=== PATIENT | male | born 1940 | race Caucasian/White ===

== ENCOUNTER 2021-07-09 13:51 | Inpatient (IN) | payer MEDICARE, OTHER ==
[~2021-07-09] VITALS: Ht 188 cm; Wt 89.6 kg
[~2021-07-09 13:51] MED LIST: CYCL-839; GABA100C9; HYDR-1421; LISI-716; METF-372; NAPR1SUS
[2021-07-09] MEDS ORDERED: ONDANSETRON HCL 4 MG/2 ML VIAL IM ONE (14:15)
[2021-07-09] MEDS ORDERED: HYDROmorphone HCL 2 MG/ML VL IM ONE (14:15)
[2021-07-09 15:48] LABS: Basophils # (auto) 0.1 10 ^3/uL (0-0.2); Basophils % (auto) 0.8 % (0.0-2.0); Eosinophils # (auto) 0.3 10 ^3/uL (0-0.8); Eosinophils % (auto) 2.6 % (0.0-7.0); Hematocrit 47.4 % (41.0-53.0); Hemoglobin 16.2 g/dL (13.5-17.5); Lymphocytes # (auto) 2.9 10 ^3/uL (0.4-5.4); Lymphocytes % (auto) 25.4 % (10.0-50.0); Mean Corpuscular Hemoglobin 33.9 pg (28.0-32.0); Mean Corpuscular Hgb Conc. 34.1 g/dL (32.0-36.0); Mean Corpuscular Volume 99.5 fL (80.0-100.0); Monocytes # (auto) 1.1 10 ^3/uL (0-1.3); Monocytes % (auto) 9.9 % (0.0-12.0); Neutrophils % (auto) 61.3 % (37.0-80.0); Nucleated Red Blood Cells % 0.1 %; Red Blood Cells 4.76 10^6/uL (4.5-5.90); Red Cell Distribution Width 13.3 % (11.8-14.3); White Blood Cell 11.4 10^3/uL (4.4-10.8)
[2021-07-09 16:05] LABS: Albumin 3.5 g/dL (3.4-5.0); Calcium 8.9 mg/dL (8.5-10.1); Potassium 4.1 mmol/L (3.5-5.1)
[2021-07-09 16:08] LABS: Bilirubin, Total 0.4 mg/dL (0.2-1.0); Total Protein 6.8 g/dL (6.4-8.2)
[2021-07-09] MEDS ORDERED: methylPREDNISolone SOD SUCC 125 MG/2 ML VL IV ONE (16:30)
[2021-07-09] MEDS ORDERED: ONDANSETRON HCL 4 MG/2 ML VIAL IV ONE (16:30)
[2021-07-09] MEDS ORDERED: MORPHINE SULFATE 4 MG/ML SYR/VIAL IV PRN (16:30)
[2021-07-09] MEDS ORDERED: NITROGLYCERIN 0.4 MG SL TAB SL PRN ×2 (16:30→18:45)
[2021-07-09] MEDS ORDERED: MORPHINE SULFATE INJECTION 2 MG/ML SYRG IV PRN ×3 (16:30→18:45)
[2021-07-09] MEDS ORDERED: ONDANSETRON HCL 4 MG/2 ML VIAL IV PRN ×2 (16:30→18:45)
[2021-07-09] MEDS ORDERED: ASPI-498 PO (16:55)
[2021-07-09] MEDS ORDERED: CARV3.1240 PO (16:55)
[2021-07-09] MEDS ORDERED: ATOR20TA50 PO (16:55)
[2021-07-09] MEDS ORDERED: B-COCAP36 PO (16:55)
[2021-07-09] MEDS ORDERED: GABA-339 PO (16:55)
[2021-07-09] MEDS ORDERED: HYDR-4798 PO (16:55)
[2021-07-09] MEDS ORDERED: METF-929 PO (16:55)
[2021-07-09] MEDS ORDERED: SODIUM CHLORIDE 0.9% 1,000 ML IV ONE (18:30)
[2021-07-09] MEDS ORDERED: NIFEdipine ER 30 MG TAB PO ONE (18:30)
[2021-07-09] MEDS ORDERED: hydrALAZINE HCL 20 MG/ML VL IV PRN (18:30)
[2021-07-09] MEDS: SODIUM CHLORIDE 0.9% 1,000 ML IV SCH (18:32)
[2021-07-09] MEDS ORDERED: cefTRIAXone 1GM/50ML D5W 50 ML IV ONE (18:45)
[2021-07-09] MEDS ORDERED: ACETAMINOPHEN 325 MG TAB PO PRN (18:45)
[2021-07-09] MEDS ORDERED: ALUM & MAG HYDROX-SIMETH LIQ(MAALOX) 30 ML PO PRN (18:45)
[2021-07-09] MEDS ORDERED: DEXTROSE (50%) 50ML SYRG IV PRN (18:45)
[2021-07-09] MEDS ORDERED: HYDROcodone-ACET 5/325MG TAB PO PRN (18:45)
[2021-07-09] MEDS ORDERED: DOCUSATE SOD 100 MG CAP PO PRN (18:45)
[2021-07-09] MEDS ORDERED: FAMOTIDINE (10MG/ML) 2ML VL IV ONE (18:45)
[2021-07-09] MEDS ORDERED: TEMAZEPAM 15 MG CAP PO PRN (18:45)
[2021-07-09 19:23] LABS: Urine Bacteria NONE SEEN /hpf (None Seen); Urine Blood Negative /uL (Negative); Urine WBC 1 /hpf (0 - 3)
[2021-07-09 21:46] LABS: Alcohol, Urine < 3.0 mg/dL (0-10); Amphetamine Screen, Urine NEGATIVE (NEGATIVE); Barbiturate Scree,Urine NEGATIVE (NEGATIVE); Benzodiazephine Screen, Urine NEGATIVE (NEGATIVE); Cannabinoid Screen, Urine POSITIVE (NEGATIVE); Cocaine Screen, Urine NEGATIVE (NEGATIVE); Opiate Scree,Urine POSITIVE (NEGATIVE); Phencyclidine Screen, Urine NEGATIVE (NEGATIVE)
[2021-07-09] MEDS: methylPREDNISolone SOD SUCC 40 MG/ML VL IV SCH (22:14)
[2021-07-09] MEDS: GABAPENTIN 300 MG CAP PO SCH (22:18)
[2021-07-09] MEDS: ATORVASTATIN 20 MG TAB PO SCH (22:18)
[2021-07-09] MEDS: ACCU-CHEK COMFORT CURVE STRIP VI SCH (22:47)
[2021-07-09 23:00] VITALS: BP 137/74
[2021-07-09] MEDS: InsuLIN REG 1unit/0.01ml Soln (100units/ml) SC SCH (23:02)
[2021-07-10 04:53] VITALS: BP 128/71
[2021-07-10 06:08] LABS: Basophils # (auto) 0 10 ^3/uL (0-0.2); Basophils % (auto) 0.2 % (0.0-2.0); Eosinophils # (auto) 0 10 ^3/uL (0-0.8); Hematocrit 44.7 % (41.0-53.0); Hemoglobin 15.3 g/dL (13.5-17.5); Lymphocytes # (auto) 1.3 10 ^3/uL (0.4-5.4); Lymphocytes % (auto) 14.3 % (10.0-50.0); Mean Corpuscular Hemoglobin 33.9 pg (28.0-32.0); Mean Corpuscular Hgb Conc. 34.3 g/dL (32.0-36.0); Mean Corpuscular Volume 98.8 fL (80.0-100.0); Monocytes # (auto) 0.1 10 ^3/uL (0-1.3); Monocytes % (auto) 1.2 % (0.0-12.0); Neutrophils # (auto) 7.8 10 ^3/uL (1.6-8.6); Neutrophils % (auto) 84.3 % (37.0-80.0); Red Blood Cells 4.52 10^6/uL (4.5-5.90); Red Cell Distribution Width 13.5 % (11.8-14.3); White Blood Cell 9.2 10^3/uL (4.4-10.8)
[2021-07-10 06:23] LABS: Albumin 3.2 g/dL (3.4-5.0); Potassium 4.2 mmol/L (3.5-5.1)
[2021-07-10] MEDS: methylPREDNISolone SOD SUCC 40 MG/ML VL IV SCH ×3 (06:29→21:15)
[2021-07-10] MEDS: GABAPENTIN 300 MG CAP PO SCH ×3 (06:29→21:15)
[2021-07-10] MEDS: ACCU-CHEK COMFORT CURVE STRIP VI SCH ×4 (06:29→21:16)
[2021-07-10 06:30] LABS: INR 1.1 (0.9-1.15); Partial Thromboplastin Time 25.7 sec (23.6-33.0)
[2021-07-10] MEDS: InsuLIN REG 1unit/0.01ml Soln (100units/ml) SC SCH ×4 (06:40→21:25)
[2021-07-10 06:43] LABS: BUN/Creatinine Ratio 28.9; Bilirubin, Total 0.4 mg/dL (0.2-1.0); Calcium 8.9 mg/dL (8.5-10.1); Magnesium 2.5 mg/dL (1.6-2.6); Phosphorus 3.9 mg/dL (2.5-4.90); Total Protein 6.9 g/dL (6.4-8.2); Uric Acid 8.1 mg/dL (3.5-7.2)
[2021-07-10 09:00] VITALS: BP 151/84
[2021-07-10] MEDS ORDERED: FAMOTIDINE (10MG/ML) 2ML VL IV SCH (10:00)
[2021-07-10] MEDS: cefTRIAXone 1GM/50ML D5W 50 ML IV SCH (10:31)
[2021-07-10] MEDS: NIFEdipine ER 30 MG TAB PO SCH (10:32)
[2021-07-10] MEDS: MULTIPLE VITAMINS W/ MINERALS TAB PO SCH (10:32)
[2021-07-10] MEDS: ENOXAPARIN SOD 40 MG/0.4 ML SYRINGE SC SCH (10:32)
[2021-07-10] MEDS: ASPirin 81 mg TAB PO SCH (10:32)
[2021-07-10] MEDS: SODIUM CHLORIDE 0.9% 1,000 ML IV SCH (11:10)
[2021-07-10 13:00] VITALS: BP 156/79
[2021-07-10 17:00] VITALS: BP 135/71
[2021-07-10] MEDS: ATORVASTATIN 20 MG TAB PO SCH (21:15)
[2021-07-10 22:00] VITALS: BP 103/68
[2021-07-11 05:00] VITALS: BP 106/57
[2021-07-11] MEDS: SODIUM CHLORIDE 0.9% 1,000 ML IV SCH (05:48)
[2021-07-11] MEDS: methylPREDNISolone SOD SUCC 40 MG/ML VL IV SCH ×2 (05:51→14:00)
[2021-07-11] MEDS: ACCU-CHEK COMFORT CURVE STRIP VI SCH ×2 (05:52→11:55)
[2021-07-11] MEDS: GABAPENTIN 300 MG CAP PO SCH ×2 (05:52→14:00)
[2021-07-11] MEDS: InsuLIN REG 1unit/0.01ml Soln (100units/ml) SC SCH ×2 (06:02→11:54)
[2021-07-11 08:06] LABS: Immunoglobulin G, Serum 517 mg/dL (603-1613)
[2021-07-11 09:00] VITALS: BP 130/67
[2021-07-11] MEDS: cefTRIAXone 1GM/50ML D5W 50 ML IV SCH (09:00)
[2021-07-11] MEDS ORDERED: fentaNYL CITRATE 100 MCG/2 ML VL ONE (09:51)
[2021-07-11] MEDS ORDERED: MIDAZOLAM HCL 2MG/2ML 2ml VIAL (1mg/ml) ONE (09:51)
[2021-07-11] MEDS: ENOXAPARIN SOD 40 MG/0.4 ML SYRINGE SC SCH (10:00)
[2021-07-11] MEDS: MULTIPLE VITAMINS W/ MINERALS TAB PO SCH (10:00)
[2021-07-11] MEDS: ASPirin 81 mg TAB PO SCH (10:00)
[2021-07-11] MEDS: NIFEdipine ER 30 MG TAB PO SCH (10:00)
== END 2021-07-11 15:35 | disposition home health service (06) | DRG 824 ==
LOC: ER 13:51 → EDBD 13:51 → OVERFLOW 16:23 → WEST WING 22:25
PROVIDERS: ADMIT Hospitalist; ATTEND Internal Medicine Geriatric Medicine
PROC: 05HB33Z Insertion of Infusion Device into Right Basilic Vein, Percutaneous Approach (ICD-10-PCS; 2021-07-10)
PROC: B54MZZA Ultrasonography of Right Upper Extremity Veins, Guidance (ICD-10-PCS; 2021-07-10)
PROC: 0QB13ZX Excision of Sacrum, Percutaneous Approach, Diagnostic (ICD-10-PCS; principal; 2021-07-11)
DX: C90.00 Multiple myeloma not having achieved remission (principal); M48.56XA Collapsed vertebra, not elsewhere classified, lumbar region, initial encounter for fracture; F11.20 Opioid dependence, uncomplicated; Z94.84 Stem cells transplant status; G89.4 Chronic pain syndrome; G62.9 Polyneuropathy, unspecified; E78.5 Hyperlipidemia, unspecified; I25.10 Atherosclerotic heart disease of native coronary artery without angina pectoris; E11.9 Type 2 diabetes mellitus without complications; I10 Essential (primary) hypertension; Z20.822 Contact with and (suspected) exposure to COVID-19; M81.0 Age-related osteoporosis without current pathological fracture; F32.A Depression, unspecified; Z79.84 Long term (current) use of oral hypoglycemic drugs; Z79.899 Other long term (current) drug therapy; Z83.3 Family history of diabetes mellitus; Z92.21 Personal history of antineoplastic chemotherapy
CPT/HCPCS: 10022; 36415; 71045; 72131; 72192; 77012; 77074; 80053; 80307; 81001; 82306; 82784; 82962; 83036; 83735; 83880; 83883; 84100; 84155; 84156; 84165; 84166; 84443; 84484; 84550; 85025; 85379; 85610; 85730; 86334; 86335; 87040; 87086; 87426; 96365; 96372; 96375; G0378; J0696; J1815; J2250; J2405; J3490

== ENCOUNTER 2021-11-24 15:25 | Emergency (ER) | payer OTHER ==
[~2021-11-24] VITALS: Ht 180.3 cm; Wt 86.2 kg
[~2021-11-24 15:25] MED LIST changes: +ASPI-498 PO; +ATOR20TA50 PO; +B-COCAP36 PO; +CARV3.1240 PO; -CYCL-839; +GABA-339 PO; -GABA100C9; -HYDR-1421; +HYDR-4798 PO; -LISI-716; -METF-372; +METF-929 PO; -NAPR1SUS
[2021-11-24] MEDS ORDERED: SODIUM CHLORIDE 0.9% 1,000 ML IV ONE (15:45)
[2021-11-24 17:25] LABS: INR 1.12 (0.9-1.15); Partial Thromboplastin Time 22.6 sec (23.6-33.0)
[2021-11-24 17:26] LABS: Albumin 2.9 g/dL (3.4-5.0); Magnesium 2.1 mg/dL (1.6-2.6); Potassium 4.8 mmol/L (3.5-5.1)
[2021-11-24 17:29] LABS: BUN/Creatinine Ratio 24.2; Bilirubin, Total 0.3 mg/dL (0.2-1.0)
[2021-11-24 17:38] LABS: Eosinophils # (auto) 0.1 10 ^3/uL (0-0.8); Eosinophils % (auto) 1.9 % (0.0-7.0); Lymphocytes # (auto) 0.7 10 ^3/uL (0.4-5.4); Mean Corpuscular Hgb Conc. 34.4 g/dL (32.0-36.0); White Blood Cell 7.7 10^3/uL (4.4-10.8)
[2021-11-24 17:40] LABS: Basophils # (auto) 0 10 ^3/uL (0-0.2); Basophils % (auto) 0.5 % (0.0-2.0); Hematocrit 37.9 % (41.0-53.0); Mean Corpuscular Hemoglobin 34.6 pg (28.0-32.0); Mean Corpuscular Volume 100.6 fL (80.0-100.0); Monocytes # (auto) 1.1 10 ^3/uL (0-1.3); Monocytes % (auto) 14.5 % (0.0-12.0); Neutrophils # (auto) 5.7 10 ^3/uL (1.6-8.6); Neutrophils % (auto) 74.1 % (37.0-80.0); Nucleated Red Blood Cells % 0.4 %; Red Blood Cells 3.76 10^6/uL (4.5-5.90); Red Cell Distribution Width 13.6 % (11.8-14.3)
[2021-11-24 20:31] VITALS: BP 143/80
== END 2021-11-24 20:32 | disposition left against medical advice (07) ==
LOC: EDBD 15:25 → ER 15:25
DX: R55 Syncope and collapse (principal); I10 Essential (primary) hypertension; E11.9 Type 2 diabetes mellitus without complications; E78.5 Hyperlipidemia, unspecified; Z79.82 Long term (current) use of aspirin; Z79.899 Other long term (current) drug therapy
CPT/HCPCS: 36415; 70450; 71045; 80053; 80320; 83735; 83880; 84484; 85025; 85610; 85730; 93005; 96360; 96361; 99285; J7030

== ENCOUNTER 2022-12-22 13:20 | Inpatient (IN) | payer OTHER ==
[~2022-12-22] VITALS: Ht 180.3 cm; Wt 113.4 kg
[2022-12-22] MEDS ORDERED: SODIUM CHLORIDE 0.9% 1,000 ML IVB ONE (13:45)
[2022-12-22] MEDS ORDERED: LORazepam 2MG/ML-1ML VIAL IV ONE ×2 (14:00→14:45)
[2022-12-22 14:14] LABS: Basophils # (auto) 0 10 ^3/uL (0-0.2); Eosinophils # (auto) 0.1 10 ^3/uL (0-0.8); Neutrophils # (auto) 4.5 10 ^3/uL (1.6-8.6); Nucleated Red Blood Cells % 0.1 %; White Blood Cell 7.2 10^3/uL (4.4-10.8)
[2022-12-22 14:15] LABS: Basophils % (auto) 0.5 % (0.0-2.0); Eosinophils % (auto) 1.2 % (0.0-7.0); Hematocrit 38.7 % (41.0-53.0); Hemoglobin 13.2 g/dL (13.5-17.5); Lymphocytes # (auto) 1.7 10 ^3/uL (0.4-5.4); Lymphocytes % (auto) 23.4 % (10.0-50.0); Mean Corpuscular Hemoglobin 36.1 pg (28.0-32.0); Mean Corpuscular Volume 106.1 fL (80.0-100.0); Monocytes # (auto) 0.8 10 ^3/uL (0-1.3); Monocytes % (auto) 11.6 % (0.0-12.0); Neutrophils % (auto) 63.3 % (37.0-80.0); Red Blood Cells 3.65 10^6/uL (4.5-5.90); Red Cell Distribution Width 15.8 % (11.8-14.3)
[2022-12-22] MEDS ORDERED: LORazepam 2MG/ML-1ML VIAL ONE (14:44)
[2022-12-22 14:45] LABS: Albumin 3.9 g/dL (3.4-5.0); Anion Gap 5 (5-15); Blood Urea Nitrogen 25 mg/dL (7-18); Carbon Dioxide 24 mmol/L (21-32); Chloride 106 mmol/L (98-107); Sodium 135 mmol/L (136-145)
[2022-12-22 14:48] LABS: INR 1.07 (0.9-1.15); Partial Thromboplastin Time 23.3 sec (24.6-33.4)
[2022-12-22 14:49] LABS: Lactic Acid w/Reflex 2.6 mmol/L (0.4-2.0)
[2022-12-22] MEDS ORDERED: HALOPERIDOL LACTATE 5 MG/ML INJ VIAL ONE (14:50)
[2022-12-22 14:51] LABS: Alanine Aminotransferase 31 U/L (16-61); Alkaline Phosphatase 146 U/L (45-117); Aspartate Aminotransferase 23 U/L (15-37); BUN/Creatinine Ratio 22.5 (10.0-20.0); Bilirubin, Total 0.5 mg/dL (0.2-1.0); Blood Alcohol < 3.0 mg/dL (0-5); Calcium 8.4 mg/dL (8.5-10.1); GFR African American 82 mL/min; GFR Non-African American 68 mL/min; Glucose 94 mg/dL (74-106); Total Protein 7.1 g/dL (6.4-8.2)
[2022-12-22] MEDS ORDERED: LORazepam 2MG/ML-1ML VIAL IM ONE (15:00)
[2022-12-22] MEDS ORDERED: HALOPERIDOL LACTATE 5 MG/ML INJ VIAL IM ONE ×2 (15:00→15:30)
[2022-12-22] MEDS ORDERED: diphenhdrAMINE HCL 50 MG/1 ML VL IM ONE (15:30)
[2022-12-22] MEDS ORDERED: levoFLOXacin 500MG 100 ML IV ONE (16:45)
[2022-12-22] MEDS ORDERED: SODIUM CHLORIDE 0.9% 2,850 ML IV ONE (17:00)
[2022-12-22 17:19] LABS: Alcohol, Urine < 3.0 mg/dL (0-10); Amphetamine Screen, Urine NEGATIVE (NEGATIVE); Barbiturate Scree,Urine NEGATIVE (NEGATIVE); Benzodiazephine Screen, Urine NEGATIVE (NEGATIVE); Cannabinoid Screen, Urine NEGATIVE (NEGATIVE); Cocaine Screen, Urine NEGATIVE (NEGATIVE); Opiate Scree,Urine NEGATIVE (NEGATIVE); Phencyclidine Screen, Urine NEGATIVE (NEGATIVE)
[2022-12-22] MEDS ORDERED: cefTRIAXone 1GM/50ML D5W 50 ML IV ONE (17:30)
[2022-12-22 17:31] LABS: Urine Bacteria NONE SEEN /hpf (None Seen); Urine Blood Negative /uL (Negative); Urine Specific Gravity 1.018 (1.001-1.035); Urine WBC 3 /hpf (0 - 3)
[2022-12-22] MEDS ORDERED: DEXTROSE (50%) 50ML SYRG IV PRN (19:15)
[2022-12-22] MEDS ORDERED: NITROGLYCERIN 0.4 MG SL TAB SL PRN (19:15)
[2022-12-22] MEDS ORDERED: MORPHINE SULFATE INJ 2 MG/ml SYRG IV PRN (19:15)
[2022-12-22] MEDS ORDERED: ATOR-47 PO (19:33)
[2022-12-22 20:15] LABS: Cholesterol 63 mg/dL (< 200); HDL Cholesterol 32 mg/dL (40-59); LDL Cholesterol 27 mg/dL (< 100); Triglycerides 101 mg/dL (< 150)
[2022-12-22] MEDS: CARVEDILOL 3.125 MG TAB PO SCH (22:00)
[2022-12-22] MEDS: InsuLIN REG 1unit/0.01ml Soln (100units/ml) SC SCH (22:00)
[2022-12-22] MEDS ORDERED: ATORVASTATIN 20 MG TAB PO SCH (22:00)
[2022-12-22] MEDS: ACCU-CHEK COMFORT CURVE STRIP VI SCH (22:00)
[2022-12-22] MEDS: SODIUM CHLORIDE 0.9% 1,000 ML IV SCH (23:56)
[2022-12-22] MEDS: CEFEPIME 1GM/ 50ML 50 ML IV SCH (23:56)
[2022-12-23] MEDS: ENOXAPARIN SOD 40 MG/0.4 ML SYRINGE SC SCH ×2 (00:36→10:57)
[2022-12-23] MEDS: hydrALAZINE HCL 20 MG/ML VL IV PRN (00:47)
[2022-12-23] MEDS: SODIUM CHLORIDE 0.9% 1,000 ML IV SCH ×2 (05:15→16:15)
[2022-12-23] MEDS: ACCU-CHEK COMFORT CURVE STRIP VI SCH ×4 (06:31→22:00)
[2022-12-23] MEDS: InsuLIN REG 1unit/0.01ml Soln (100units/ml) SC SCH ×4 (06:32→22:00)
[2022-12-23 06:36] LABS: Basophils # (auto) 0 10 ^3/uL (0-0.2); Basophils % (auto) 0.3 % (0.0-2.0); Eosinophils # (auto) 0.1 10 ^3/uL (0-0.8); Eosinophils % (auto) 1.3 % (0.0-7.0); Hematocrit 36.2 % (41.0-53.0); Hemoglobin 12.4 g/dL (13.5-17.5); Lymphocytes # (auto) 1.2 10 ^3/uL (0.4-5.4); Lymphocytes % (auto) 16.5 % (10.0-50.0); Mean Corpuscular Hemoglobin 36.4 pg (28.0-32.0); Mean Corpuscular Hgb Conc. 34.2 g/dL (32.0-36.0); Mean Corpuscular Volume 106.6 fL (80.0-100.0); Monocytes # (auto) 0.9 10 ^3/uL (0-1.3); Monocytes % (auto) 12.2 % (0.0-12.0); Neutrophils # (auto) 5.1 10 ^3/uL (1.6-8.6); Neutrophils % (auto) 69.7 % (37.0-80.0); Red Blood Cells 3.39 10^6/uL (4.5-5.90); Red Cell Distribution Width 15.8 % (11.8-14.3); White Blood Cell 7.3 10^3/uL (4.4-10.8)
[2022-12-23] MEDS: CEFEPIME 1GM/ 50ML 50 ML IV SCH ×3 (06:36→22:10)
[2022-12-23 06:47] LABS: Potassium 3.8 mmol/L (3.5-5.1)
[2022-12-23 06:54] LABS: Albumin 3.4 g/dL (3.4-5.0); BUN/Creatinine Ratio 18.4 (10.0-20.0); Bilirubin, Total 0.6 mg/dL (0.2-1.0); Calcium 8.3 mg/dL (8.5-10.1); Total Protein 6.6 g/dL (6.4-8.2)
[2022-12-23] MEDS ORDERED: HALOPERIDOL LACTATE 5 MG/ML INJ VIAL ONE (07:25)
[2022-12-23] MEDS ORDERED: HALOPERIDOL LACTATE 5 MG/ML INJ VIAL IM ONE (07:30)
[2022-12-23] MEDS: CARVEDILOL 3.125 MG TAB PO SCH ×2 (10:00→22:00)
[2022-12-23] MEDS: ASPirin-EC 81 mg tab PO SCH (10:00)
[2022-12-23] MEDS ORDERED: LORazepam 2MG/ML-1ML VIAL IV PRN (10:15)
[2022-12-23] MEDS: PANTOPRAZOLE 40 MG/10 ML VIAL INJ IV SCH (10:56)
[2022-12-23 10:58] LABS: Folate (Folic Acid) > 24.00 ng/mL (5.38-24)
[2022-12-23] MEDS: HALOPERIDOL LACTATE 5 MG/ML INJ VIAL IM PRN (12:42)
[2022-12-23] MEDS: LORazepam 2MG/ML-1ML VIAL IV PRN (16:15)
[2022-12-23 22:00] VITALS: BP 116/91
[2022-12-23] MEDS: SACUBITRIL-VALSARTAN 24mg/26mg TAB PO SCH (22:00)
[2022-12-23] MEDS: ATORVASTATIN 20 MG TAB PO SCH (22:00)
[2022-12-24] MEDS: SODIUM CHLORIDE 0.9% 1,000 ML IV SCH ×3 (01:15→21:15)
[2022-12-24 05:00] VITALS: BP 148/84
[2022-12-24] MEDS: EMPAGLIFLOZIN 10 MG TAB PO SCH (06:43)
[2022-12-24] MEDS: CEFEPIME 1GM/ 50ML 50 ML IV SCH ×2 (06:43→14:14)
[2022-12-24] MEDS: InsuLIN REG 1unit/0.01ml Soln (100units/ml) SC SCH ×4 (07:00→22:37)
[2022-12-24] MEDS: ACCU-CHEK COMFORT CURVE STRIP VI SCH ×4 (07:05→22:36)
[2022-12-24 08:00] VITALS: BP 168/98
[2022-12-24 09:00] VITALS: BP 168/98
[2022-12-24] MEDS: ENOXAPARIN SOD 40 MG/0.4 ML SYRINGE SC SCH (09:48)
[2022-12-24] MEDS: CARVEDILOL 3.125 MG TAB PO SCH ×2 (09:49→22:41)
[2022-12-24] MEDS: SACUBITRIL-VALSARTAN 24mg/26mg TAB PO SCH ×3 (09:49→22:42)
[2022-12-24] MEDS: PANTOPRAZOLE 40 MG/10 ML VIAL INJ IV SCH (09:49)
[2022-12-24] MEDS: ASPirin-EC 81 mg tab PO SCH (09:49)
[2022-12-24] MEDS: LORazepam 2MG/ML-1ML VIAL IV PRN (09:50)
[2022-12-24 13:00] VITALS: BP 143/75
[2022-12-24] MEDS: HALOPERIDOL LACTATE 5 MG/ML INJ VIAL IM PRN (13:09)
[2022-12-24 17:00] VITALS: BP 138/75
[2022-12-24 20:00] VITALS: BP 150/76
[2022-12-24] MEDS: ATORVASTATIN 20 MG TAB PO SCH ×2 (22:00→22:42)
[2022-12-25] MEDS: SODIUM CHLORIDE 0.9% 1,000 ML IV SCH ×2 (02:16→17:15)
[2022-12-25] MEDS: ACCU-CHEK COMFORT CURVE STRIP VI SCH ×4 (06:48→22:00)
[2022-12-25] MEDS: InsuLIN REG 1unit/0.01ml Soln (100units/ml) SC SCH ×4 (06:49→22:00)
[2022-12-25] MEDS: EMPAGLIFLOZIN 10 MG TAB PO SCH (06:51)
[2022-12-25 08:00] VITALS: BP 140/83
[2022-12-25] MEDS: ASPirin-EC 81 mg tab PO SCH (09:14)
[2022-12-25] MEDS: SACUBITRIL-VALSARTAN 24mg/26mg TAB PO SCH (09:14)
[2022-12-25] MEDS: ENOXAPARIN SOD 40 MG/0.4 ML SYRINGE SC SCH (09:15)
[2022-12-25] MEDS: CARVEDILOL 3.125 MG TAB PO SCH ×2 (09:15→22:00)
[2022-12-25 12:00] VITALS: BP 138/73
[2022-12-25 16:00] VITALS: BP 147/71
[2022-12-25] MEDS: LORazepam 2MG/ML-1ML VIAL IV PRN (18:59)
[2022-12-25 20:00] VITALS: BP 150/76
[2022-12-25] MEDS: ATORVASTATIN 20 MG TAB PO SCH (22:00)
[2022-12-26] MEDS: SODIUM CHLORIDE 0.9% 1,000 ML IV SCH ×3 (06:08→18:54)
[2022-12-26] MEDS: EMPAGLIFLOZIN 10 MG TAB PO SCH (06:09)
[2022-12-26] MEDS: hydrALAZINE HCL 20 MG/ML VL IV PRN ×2 (07:07→14:56)
[2022-12-26 09:00] VITALS: BP_SYST 138; BP_DIAS 40; BP_DIAS 64
[2022-12-26] MEDS: ASPirin-EC 81 mg tab PO SCH (10:09)
[2022-12-26] MEDS: SACUBITRIL-VALSARTAN 24mg/26mg TAB PO SCH (10:09)
[2022-12-26] MEDS: ENOXAPARIN SOD 40 MG/0.4 ML SYRINGE SC SCH (10:10)
[2022-12-26] MEDS: CARVEDILOL 3.125 MG TAB PO SCH (10:10)
[2022-12-26 11:58] LABS: BUN/Creatinine Ratio 22.4 (10.0-20.0); Calcium 8.7 mg/dL (8.5-10.1); Magnesium 2.1 mg/dL (1.6-2.6); Potassium 3.5 mmol/L (3.5-5.1)
[2022-12-26] MEDS: ACCU-CHEK COMFORT CURVE STRIP VI SCH ×3 (12:22→16:49)
[2022-12-26] MEDS: InsuLIN REG 1unit/0.01ml Soln (100units/ml) SC SCH ×4 (12:27→22:00)
[2022-12-26 13:00] VITALS: BP 160/80
[2022-12-26 18:22] VITALS: BP 138/40
[2022-12-27] MEDS: ATORVASTATIN 20 MG TAB PO SCH ×2 (02:26→22:47)
[2022-12-27] MEDS: SACUBITRIL-VALSARTAN 24mg/26mg TAB PO SCH ×3 (02:26→22:47)
[2022-12-27] MEDS: ACCU-CHEK COMFORT CURVE STRIP VI SCH ×5 (02:26→22:00)
[2022-12-27] MEDS: EMPAGLIFLOZIN 10 MG TAB PO SCH (06:45)
[2022-12-27] MEDS: InsuLIN REG 1unit/0.01ml Soln (100units/ml) SC SCH ×4 (06:46→22:00)
[2022-12-27] MEDS: ENOXAPARIN SOD 40 MG/0.4 ML SYRINGE SC SCH (10:00)
[2022-12-27] MEDS: CARVEDILOL 3.125 MG TAB PO SCH ×2 (10:00→22:48)
[2022-12-27] MEDS: SODIUM CHLORIDE 0.9% 1,000 ML IV SCH ×2 (10:20→23:39)
[2022-12-27] MEDS: ASPirin-EC 81 mg tab PO SCH (10:21)
[2022-12-27] MEDS: HALOPERIDOL LACTATE 5 MG/ML INJ VIAL IM PRN (20:03)
[2022-12-27 22:00] VITALS: BP 150/80
[2022-12-28] MEDS: LORazepam 2MG/ML-1ML VIAL IV PRN (01:22)
[2022-12-28 05:00] VITALS: BP 146/67
[2022-12-28] MEDS: SODIUM CHLORIDE 0.9% 1,000 ML IV SCH ×2 (05:15→17:39)
[2022-12-28] MEDS: EMPAGLIFLOZIN 10 MG TAB PO SCH (06:17)
[2022-12-28] MEDS: InsuLIN REG 1unit/0.01ml Soln (100units/ml) SC SCH ×4 (06:42→21:54)
[2022-12-28] MEDS: ACCU-CHEK COMFORT CURVE STRIP VI SCH ×4 (06:42→21:51)
[2022-12-28] MEDS: CARVEDILOL 3.125 MG TAB PO SCH ×2 (09:49→21:50)
[2022-12-28] MEDS: SACUBITRIL-VALSARTAN 24mg/26mg TAB PO SCH ×2 (09:49→21:49)
[2022-12-28] MEDS: ENOXAPARIN SOD 40 MG/0.4 ML SYRINGE SC SCH (09:49)
[2022-12-28] MEDS: ASPirin-EC 81 mg tab PO SCH (09:49)
[2022-12-28 13:00] VITALS: BP 122/64
[2022-12-28 17:00] VITALS: BP 131/76
[2022-12-28] MEDS: ATORVASTATIN 20 MG TAB PO SCH (21:49)
[2022-12-28 22:00] VITALS: BP 134/80
[2022-12-29] MEDS: SODIUM CHLORIDE 0.9% 1,000 ML IV SCH (02:08)
[2022-12-29 05:00] VITALS: BP 150/79
[2022-12-29 05:07] VITALS: BP 135/76
[2022-12-29] MEDS: InsuLIN REG 1unit/0.01ml Soln (100units/ml) SC SCH ×4 (06:09→21:53)
[2022-12-29] MEDS: ACCU-CHEK COMFORT CURVE STRIP VI SCH ×4 (06:09→21:50)
[2022-12-29] MEDS: EMPAGLIFLOZIN 10 MG TAB PO SCH (06:10)
[2022-12-29] MEDS: ASPirin-EC 81 mg tab PO SCH (10:19)
[2022-12-29] MEDS: CARVEDILOL 3.125 MG TAB PO SCH ×2 (10:19→21:50)
[2022-12-29] MEDS: SACUBITRIL-VALSARTAN 24mg/26mg TAB PO SCH ×2 (10:19→21:49)
[2022-12-29] MEDS: ENOXAPARIN SOD 40 MG/0.4 ML SYRINGE SC SCH (10:20)
[2022-12-29] MEDS ORDERED: ACETAMINOPHEN 325 MG TAB PO PRN (10:30)
[2022-12-29 17:00] VITALS: BP 127/83
[2022-12-29 20:00] VITALS: BP 145/97
[2022-12-29] MEDS: ATORVASTATIN 20 MG TAB PO SCH (21:49)
[2022-12-29 22:00] VITALS: BP 145/97
[2022-12-30] MEDS: HALOPERIDOL LACTATE 5 MG/ML INJ VIAL IM PRN (05:01)
[2022-12-30] MEDS: EMPAGLIFLOZIN 10 MG TAB PO SCH (06:02)
[2022-12-30] MEDS: InsuLIN REG 1unit/0.01ml Soln (100units/ml) SC SCH ×2 (06:02→11:30)
[2022-12-30] MEDS: ACCU-CHEK COMFORT CURVE STRIP VI SCH ×2 (06:02→11:30)
[2022-12-30] MEDS: CARVEDILOL 3.125 MG TAB PO SCH (08:41)
[2022-12-30] MEDS: ASPirin-EC 81 mg tab PO SCH (08:41)
[2022-12-30] MEDS: SACUBITRIL-VALSARTAN 24mg/26mg TAB PO SCH (08:41)
[2022-12-30 09:00] VITALS: BP 105/53
[2022-12-30] MEDS ORDERED: SACU1TAB PO (09:18)
[2022-12-30 09:57] LABS: Basophils # (auto) 0.1 10 ^3/uL (0-0.2); Basophils % (auto) 0.8 % (0.0-2.0); Eosinophils # (auto) 0.1 10 ^3/uL (0-0.8); Eosinophils % (auto) 1.7 % (0.0-7.0); Hematocrit 39.8 % (41.0-53.0); Hemoglobin 13.4 g/dL (13.5-17.5); Lymphocytes # (auto) 1.4 10 ^3/uL (0.4-5.4); Lymphocytes % (auto) 19.8 % (10.0-50.0); Mean Corpuscular Hemoglobin 36.6 pg (28.0-32.0); Mean Corpuscular Hgb Conc. 33.7 g/dL (32.0-36.0); Mean Corpuscular Volume 108.6 fL (80.0-100.0); Monocytes # (auto) 0.7 10 ^3/uL (0-1.3); Monocytes % (auto) 9.9 % (0.0-12.0); Neutrophils # (auto) 4.8 10 ^3/uL (1.6-8.6); Neutrophils % (auto) 67.8 % (37.0-80.0); Red Blood Cells 3.66 10^6/uL (4.5-5.90); Red Cell Distribution Width 15.2 % (11.8-14.3); White Blood Cell 7.1 10^3/uL (4.4-10.8)
[2022-12-30 10:10] LABS: Calcium 8.4 mg/dL (8.5-10.1); Potassium 3.5 mmol/L (3.5-5.1)
[2022-12-30 10:13] LABS: BUN/Creatinine Ratio 19.5 (10.0-20.0)
[2022-12-30 10:40] VITALS: BP 105/53
[2022-12-30 13:00] VITALS: BP 99/59
== END 2022-12-30 15:00 | disposition home health service (06) | DRG 70 ==
LOC: ER 13:20 → EDBD 13:20 → EDUNIT# 13:20 → TELE 19:33 → TELE-WESTW 12-23 18:41
PROVIDERS: ADMIT Registered Nurse; ATTEND Internal Medicine Geriatric Medicine
DX: G93.41 Metabolic encephalopathy (principal); I50.43 Acute on chronic combined systolic (congestive) and diastolic (congestive) heart failure; R47.01 Aphasia; C90.01 Multiple myeloma in remission; I11.0 Hypertensive heart disease with heart failure; G40.209 Localization-related (focal) (partial) symptomatic epilepsy and epileptic syndromes with complex partial seizures, not intractable, without status epilepticus; E78.5 Hyperlipidemia, unspecified; E11.9 Type 2 diabetes mellitus without complications; D53.9 Nutritional anemia, unspecified; D69.6 Thrombocytopenia, unspecified; E66.9 Obesity, unspecified; E86.0 Dehydration; Z20.822 Contact with and (suspected) exposure to COVID-19; I44.7 Left bundle-branch block, unspecified; I65.22 Occlusion and stenosis of left carotid artery; F02.80 Dementia in other diseases classified elsewhere, unspecified severity, without behavioral disturbance, psychotic disturbance, mood disturbance, and anxiety; R55 Syncope and collapse; F17.200 Nicotine dependence, unspecified, uncomplicated; G30.9 Alzheimer's disease, unspecified; G47.00 Insomnia, unspecified; Z79.84 Long term (current) use of oral hypoglycemic drugs; Z79.899 Other long term (current) drug therapy; Z95.1 Presence of aortocoronary bypass graft; Z68.34 Body mass index [BMI] 34.0-34.9, adult
CPT/HCPCS: 36415; 36600; 70450; 71045; 72125; 80048; 80053; 80061; 80307; 80320; 81001; 82140; 82306; 82607; 82746; 82805; 82962; 83036; 83605; 83735; 83880; 84443; 84484; 85025; 85610; 85730; 87040; 87086; 87426; 93005; 93306; 93886; 96365; 96372; 96375; 97110; 97116; 97163; 97530; C9113; G0378; J0696; J1815; J1956

== ENCOUNTER 2024-11-07 10:57 | Inpatient (IN) | payer OTHER ==
[~2024-11-07] VITALS: Ht 170.2 cm; Wt 75.5 kg
[~2024-11-07 10:57] MED LIST changes: +AMIO200T13 PO; +APIX5TAB PO; +ATOR40TA52 PO; +DONE1TAB88 PO; +FOLI-119 PO; -HYDR-4798 PO; +METO25TA93 PO; +MULT-1056 PO; +OMEP-448 PO; +SACU1TAB PO; +TRAM50TA2 PO; +TRAZ-228 PO
--- NOTE | 2024-11-07 11:06 | ED.PDOC ---
SOB-HPI HPI Comments 84 year old male brought in via EMS presents to the ED with a chief complaint of shortness of breath onset 1 day. Per EMS, patient was at an urgent care today for a follow up appointment, went O2 sat was 70% RA, 911 was called. EMS states patient smoked marihuana yesterday and shortly after symptoms began. Patient is a poor historian due to Dementia. PMHx dementia, HTN, cancer, DM, HLD. Denies chest pain, nausea, vomiting, diarrhea, headache, dizziness. No other symptoms or modifying factors present at this time. Time Seen by MD: 11:00 Primary Care Provider: UNKNOWN Reviewed notes: Medications, Allergies Information Source: Patient, Emergency Med Personnel Mode of Arrival: EMS Severity: Moderate Timing: Days Duration: Since onset Context: At Rest PE Risk Factors: None History of: None Prehospital treatment: 12 Lead EKG, Oxygen Modifying Factors: Nothing Radiation: No Radiation Past Medical History PAST MEDICAL HISTORY: Cancer, Dementia, DM, High Lipids, HTN Surgical History: Denies all surgeries Family History Family History: No family hx of Cancer, No family hx of DM, No family hx of H eart jaja Social History Smoker: Non-Smoker Alcohol: Denies ETOH Use Drugs: Marijuana Lives In: Home Constitutional: denies: chills, diaphoresis, fatigue, fever, malaise, sweats, weakness, others EENTM: denies: blurred vision, double vision, ear bleeding, ear discharge, ear drainage, ear pain, ear ringing, eye pain, eye redness, hearing loss, mouth pain, mouth swelling, nasal discharge, nose bleeding, nose congestion, nose pain, photophobia, tearing, throat pain, throat swelling, voice changes, others Respiratory: reports: shortness of breath; denies: cough, hemoptysis, orth opnea, SOB at rest, SOB with excertion, stridor, wheezing, others Cardiovascular: denies: chest pain, dizzy spells, diaphoresis, Dyspnea on exertion, edema, irregular heart beat, left arm pain, lightheadedness, palpitations, PND, syncope, others Gastrointestinal: denies: abdomen distended, abdominal pain, blood streaked bowels, constipated, diarrhea, dysphagia, difficulty swallowing, hematemesis, melena, nausea, poor appetite, poor fluid intake, rectal bleeding, rectal pain, vomiting, others Genitourinary: denies: burning, dysuria, flank pain, frequency, hematuria, in continence, penile discharge, penile sore, pain, testicle pain, testicle swelling, urgency, others Neurological: denies: dizziness, fainting, headache, left sided numbness, left sided weakness, numbness, paresthesia, pre-existing deficit, right sided numbness, right sided weakness, seizure, speech problems, tingling, tremors, weakness, others Musculoskeletal: denies: back pain, gout, joint pain, joint swelling, muscle pain, muscle stiffness, neck pain, others Integumetry: denies: bruises, change in color, change in hair/nails, dryness, laceration, lesions, lumps, rash, wounds, others Allergic/Immunocompromised: denies: Difficulty Healing, Frequent Infections, Hives, Itching, others Hematologic/Lymphatic: denies: anemia, blood clots, easy bleeding, easy bruising, swollen glands, others Endocrine: denies: excessive hunger, excessive sweating, excessive thirst, excessive urination, flushing, intolerance to cold, intolerance to heat, unexplained weight gain, unexplained weight loss, others Psychiatric: denies: anxiety, bipolar disorder, depression, hopeless, panic disorder, schizophrenia, sleepless, suicidal, others All Other Systems: Reviewed and Negative Physical Exam General Appearance: Moderate Distress, Normal HEENT: Normal ENT Inspection, Pharynx Normal, TMs Normal Neck: Full Range of Motion, Non-Tender, Normal, Normal Inspection Respiratory: Chest Non-Tender, Lungs Clear, No Accessory Muscle Use, No Respiratory Distress, Normal Breath Sounds Cardiovascular: No Edema, No JVD, No Murmur, No Gallop, Normal Peripheral Pulses, Regular Rate/Rhythm Breast Exam: Deferred Gastrointestinal: No Organomegaly, Non Tender, No Pulsatile Mass, Normal Bowel Sounds, Soft Genitalia: Deferred Pelvic: Deferred Rectal: Deferred Extremities: No calf tenderness, Normal capillary refill, Normal inspection, Normal range of motion, Non-tender, No pedal edema Musculoskeletal : Apperance: Normal Neurologic: psychiatric aide instructor II-XII nml as Tested, Disoriented, No Motor Deficits, Normal Affect, Normal Mood, No Sensory Deficits Cerebellar Function: NOT DONE Reflexes: NOT DONE Skin: Dry, Normal Color, Warm Lymphatic: No Adenopathy Was a procedure done? Was a procedure done?: No Differential Dx Differential Diagnosis: Anxiety, Asthma, Bronchitis, CHF, COPD X-Ray, Labs, Meds, VS Vital Signs Date Time Temp Pulse Resp B/P (MAP) Pulse Ox O2 Delivery O2 Flow Rate FiO2 11/07/24 12:00 72 11/07/24 11:53 97.4 64 12 121/70 (87) 98 97.4 11/07/24 11:15 Nasal Cannula* 3 32 11/07/24 11:15 Nasal Cannula* 3 32 11/07/24 11:10 97.8 72 20 144/87 (106) 98 97.8 11/07/24 11:01 69 Lab Test 11/07/24 11:14 Range/Units White Blood Count 7.3 4.4-10.8 10^3/uL Red Blood Count 4.25 L 4.5-5.90 10^6/uL Hemoglobin 14.8 13.5-17.5 g/dL Hematocrit 43.6 41.0-53.0 % Mean Corpuscular Volume 102.5 H 80.0-100.0 fL Mean Corpuscular Hemoglobin 34.7 H 28.0-32.0 pg Mean Corpuscular Hemoglobin Concent 33.9 32.0-36.0 g/dL Red Cell Distribution Width 14.9 H 11.8-14.3 % Platelet Count 302 140-450 10^3/uL Mean Platelet Volume 6.7 L 6.9-10.8 fL Neutrophils (%) (Auto) 69.6 37.0-80.0 % Lymphocytes (%) (Auto) 18.8 10.0-50.0 % Monocytes (%) (Auto) 9.4 0.0-12.0 % Eosinophils (%) (Auto) 1.2 0.0-7.0 % Basophils (%) (Auto) 1.0 0.0-2.0 % Neutrophils # (Auto) 5.1 1.6-8.6 10 ^3/uL Lymphocytes # (Auto) 1.4 0.4-5.4 10 ^3/uL Monocytes # (Auto) 0.7 0-1.3 10 ^3/uL Eosinophils # (Auto) 0.1 0-0.8 10 ^3/uL Basophils # (Auto) 0.1 0-0.2 10 ^3/uL Nucleated Red Blood Cells 0.1 % Sodium Level 140 136-145 mmol/L Potassium Level 4.9 3.5-5.1 mmol/L Chloride Level 106 98-107 mmol/L Carbon Dioxide Level 24 20-31 mmol/L Anion Gap 10 5-15 Blood Urea Nitrogen 25 H 9-23 mg/dL Creatinine 1.04 0.700-1.30 mg/dL Glomerular Filtration Rate Calc 72 >90 mL/min BUN/Creatinine Ratio 24.0 H 10.0-20.0 Serum Glucose 120 H 74-106 mg/dL Calcium Level 9.6 8.7-10.4 mg/dL Troponin I High Sensitivity 11 </=54 ng/L [place] [id number] Ph: [phone] DIAGNOSTIC IMAGING Diagnostic Imaging Report : [id number] Signed PATIENT: SRINI WOOTEN ACCT: [id number] UNIT: [id number] : 1940 LOC: ER ROOM / BED: / AGE / SEX: 84 / M ADM STATUS: REG ER SERVICE 1101 ORDERING PHYSICIAN: CHAITANYA BECKER MD PROCEDURE(s): CXRP - CHEST PORTABLE REASON: sob ORDER NUMBER(s): [id number], ACCESSION NUMBER(s): [id number] INDICATION: sob TECHNIQUE: Frontal view of the chest. COMPARISON: XY CHEST PORTABLE on DOS: 12/22/22, CHEST PORTABLE on DOS: 11/24/21, CXRP on DOS: 11/24/21 FINDINGS: . The heart and mediastinal contours are grossly unremarkable. There is no evidence of pleural disease. The lungs are clear. The bony structures of the chest are intact without fracture. IMPRESSION: 1. No evidence of acute disease. ATED BY: KODY SOMMER MD DICTATED DATE/TIME: 11/07/24 120 SIGNED BY: KODY SOMMER MD SIGNED DATE/TIME: 11/07/24 120 CC: Patient history of dementia pain Was at the clinic of the knees started to have desaturation. Placed on oxygen. Comfortable. No sign of any injuries. Chest x-ray reviewed does not show any acute process. WBC within normal limits. He is not on home oxygen. Hemoglobin within normal limits. No family member at bedside. Possible COPD exacerbation. Cardiac marker within normal limits. EKG reviewed does not show any acute changes. Waiting for family. Continue cardiac monitoring. Time of 1ST Reevaluation: 11:30 Reevaluation 1ST: Unchanged Patient Education/Counseling: Diagnosis, Treatment, Prognosis Family Education/Counseling: No Family Present Departure 1 Departure Time of Disposition: 12:38 Impression: Primary Impression: Metabolic encephalopathy Additional Impressions: COPD exacerbation Acute respiratory distress Disposition: ADMITTED INPATIENT Admit to: Med Surg Condition: Guarded Critical Care Note Critical Care Time?: Yes (90 min-critical care time only) Critical care comment: Placed on oxygen Stability Stability form required: No Heart Score Heart Score: Heart Score Response (Comments) Value History Slightly Suspicious 0 EKG Normal 0 Age >65 2 Risk Factors >3 or Hx ASHD 2 Troponin Normal limit 0 Total 4 I personally scribed for CHAITANYA BECKER MD ([email or web address]) on 11/07/24 at 11:06. Electronically submitted by Lindsey Gonzalez ([email or web address]). I personally scribed for CHAITANYA BECKER MD ([email or web address]) on 11/07/24 at 12:35. Electronically submitted by Lindsey Gonzalez ([email or web address]). CHAITANYA BECKER MD Nov 07, 2024 11:06
--- NOTE | 2024-11-07 11:36 | ECG ---
[facility] Test Date: 2024-11-07 Test Time: 11:01:59 Pat Name: SRINI WOOTEN Department: ED Room: 0287 Gender: M Land Survey Technician: jaime : 1940 Requested By: EMERGENCY EMERGENCY Order Number: [id number] Reading MD: Carlos Ortiz Measurements Intervals [place] Rate: 69 P: 37 OR: 270 QRS: -15 QRSD: 162 T: 83 QT: 454 QTc: 487 Interpretive Statements Sinus rhythm Prolonged OR interval Left bundle branch block Electronically Signed On 11-09-2024 22:07:23 PDT by Carlos Ortiz Please click the below link to view image of tracing.
[2024-11-07 11:45] LABS: Basophils # (auto) 0.1 10 ^3/uL (0-0.2); Eosinophils # (auto) 0.1 10 ^3/uL (0-0.8); Eosinophils % (auto) 1.2 % (0.0-7.0); Monocytes # (auto) 0.7 10 ^3/uL (0-1.3); Nucleated Red Blood Cells % 0.1 %
[2024-11-07 11:48] LABS: Hematocrit 43.6 % (41.0-53.0); Hemoglobin 14.8 g/dL (13.5-17.5); Lymphocytes # (auto) 1.4 10 ^3/uL (0.4-5.4); Lymphocytes % (auto) 18.8 % (10.0-50.0); Mean Corpuscular Hemoglobin 34.7 pg (28.0-32.0); Mean Corpuscular Hgb Conc. 33.9 g/dL (32.0-36.0); Mean Corpuscular Volume 102.5 fL (80.0-100.0); Monocytes % (auto) 9.4 % (0.0-12.0); Neutrophils # (auto) 5.1 10 ^3/uL (1.6-8.6); Neutrophils % (auto) 69.6 % (37.0-80.0); Platelet Count (auto) 302 10^3/uL (140-450); Red Blood Cells 4.25 10^6/uL (4.5-5.90); Red Cell Distribution Width 14.9 % (11.8-14.3); White Blood Cell 7.3 10^3/uL (4.4-10.8)
[2024-11-07 11:54] LABS: Chloride 106 mmol/L (98-107); Potassium 4.9 mmol/L (3.5-5.1); Sodium 140 mmol/L (136-145)
[2024-11-07 11:55] LABS: Anion Gap 10 (5-15); Calcium 9.6 mg/dL (8.7-10.4); Carbon Dioxide 24 mmol/L (20-31)
[2024-11-07 12:01] LABS: Blood Urea Nitrogen 25 mg/dL (9-23); Glucose 120 mg/dL (74-106)
--- NOTE | 2024-11-07 12:03 | DVH ---
INDICATION: sob TECHNIQUE: Frontal view of the chest. COMPARISON: XY CHEST PORTABLE on DOS: 12/22/22, CHEST PORTABLE on DOS: 11/24/21, CXRP on DOS: 11/24/21 FINDINGS: . The heart and mediastinal contours are grossly unremarkable. There is no evidence of pleural disea se. The lungs are clear. The bony structures of the chest are intact without fracture. IMPRESSION: 1. No evidence of acute disease.
[2024-11-07 19:48] VITALS: RESP 16; O2SAT 99
[2024-11-07 22:27] VITALS: BP 133/77; PULSE 68; RESP 18; TEMP 98.1; O2SAT 100
[2024-11-07] MEDS ORDERED: DEXTROSE (50%) 50ML SYRG IV PRN (22:30)
[2024-11-07] MEDS ORDERED: ALBUTEROL SULF 2.5 MG/0.5ML(0.5%) NEB SOLN NEB PRN (22:30)
[2024-11-07] MEDS ORDERED: ACETAMINOPHEN 325 MG TAB PO PRN (22:30)
[2024-11-07] MEDS ORDERED: ONDANSETRON HCL 4 MG/2 ML VIAL IV PRN (22:30)
[2024-11-07 23:07] VITALS: O2SAT 96
[2024-11-08] VITALS (10 sets, daily range): BP systolic 102–169; BP diastolic 56–89; PULSE 63–78; RESP 16–20; TEMP 97.4–97.8; O2SAT 69–100
--- NOTE | 2024-11-08 00:28 | DVHHP2 ---
History of Present Illness Reason for Visit: Shortness for breath History of Present Illness 84-year-old male presents for evaluation of shortness for breath. Patient was seen at urgent care today and had an episode where his saturation dropped to the 70s so he was brought in for evaluation. Patient is currently on 2 L of nasal cannula oxygen saturating 94%. He denies chest pain or shortness for breath. He does have a history of dementia and can not provide accurate history. Past Medical History Diabetes mellitus, dementia, dyslipidemia, hypertension cancer Past Surgical History Denies Family History Noncontributory Smoke: No ALCOHOL: none Drugs: None Lives: with Family Review of Systems Review of Systems Review of systems are currently negative otherwise addressed in HPI. Allergies: Coded Allergies: NO KNOWN ALLERGIES (Unverified , 11/10/10) Medications Current Medications Medications Dose Ordered Sig/Sony Route Start Time Stop Time Status Last Admin Dose Admin Donepezil HCl 10 mg HS PO 11/08/24 22:00 Amiodarone HCl 200 mg DAILY PO 11/08/24 10:00 Carvedilol 3.125 mg Q12HR PO 11/08/24 10:00 Atorvastatin Calcium 40 mg HS PO 11/08/24 22:00 Apixaban 5 mg BID PO 11/08/24 10:00 Albuterol 2.5 mg Q6HPRN PRN NEB 11/07/24 22:30 Diagnostic Test (Pha) 1 strip ACHS 11/08/24 07:00 Insulin Human Regular ACHS SC 11/08/24 07:00 Dextrose 50 ml UD PRN IV 11/07/24 22:30 Ondansetron HCl 4 mg Q4HP PRN IV 11/07/24 22:30 Acetaminophen 650 mg Q6HP PRN PO 11/07/24 22:30 Exam Vital Signs Vital Signs Date Time Temp Pulse Resp B/P (MAP) Pulse Ox O2 Delivery O2 Flow Rate FiO2 11/08/24 00:00 65 11/07/24 23:30 14 132/59 (83) 99 11/07/24 23:07 Nasal Cannula* 3 32 11/07/24 22:27 98.1 98.1 Exam Gen: 84-year-old male in mild distress. Skin: Warm, dry, normal color and texture, no rash. HEENT: Normocephalic atraumatic, mucous membranes moist and pink. Neck: Cervical and supraclavicular nodes normal without enlargement, trachea is midline, thyroid gland is normal without masses. Pulmonary: Clear to auscultation and percussion bilaterally. Cardiac: Regular rate and rhythm. No murmur Abdomen: Soft, nontender, nondistended, bowel sounds present all 4 quadrants, no guarding, no rigidity, no organomegaly. Extremities: No cyanosis, clubbing, no edema Neuro: Cranial nerves II through XII grossly intact, normal affect and speech, no focal motor deficits. Labs/Xrays ORDERING PHYSICIAN: CHAITANYA BECKER MD PROCEDURE(s): CXRP - CHEST PORTABLE REASON: sob ORDER NUMBER(s): [id number], ACCESSION NUMBER(s): [id number] INDICATION: sob TECHNIQUE: Frontal view of the chest. COMPARISON: XY CHEST PORTABLE on DOS: 12/22/22, CHEST PORTABLE on DOS: 11/24/21, CXRP on DOS: 11/24/21 FINDINGS: . The heart and mediastinal contours are grossly unremarkable. There is no evidence of pleural disease. The lungs are clear. The bony structures of the chest are intact without fracture. IMPRESSION: 1. No evidence of acute disease. Labs Test 11/07/24 22:39 11/07/24 11:14 Range/Units D-Dimer, Quantitative 1.85 H 0.0-0.49 mg/L FEU B-Type Natriuretic Peptide 387.08 0-100 pg/mL White Blood Count 7.3 4.4-10.8 10^3/uL Red Blood Count 4.25 L 4.5-5.90 10^6/uL Hemoglobin 14.8 13.5-17.5 g/dL Hematocrit 43.6 41.0-53.0 % Mean Corpuscular Volume 102.5 H 80.0-100.0 fL Mean Corpuscular Hemoglobin 34.7 H 28.0-32.0 pg Mean Corpuscular Hemoglobin Concent 33.9 32.0-36.0 g/dL Red Cell Distribution Width 14.9 H 11.8-14.3 % Platelet Count 302 140-450 10^3/uL Mean Platelet Volume 6.7 L 6.9-10.8 fL Neutrophils (%) (Auto) 69.6 37.0-80.0 % Lymphocytes (%) (Auto) 18.8 10.0-50.0 % Monocytes (%) (Auto) 9.4 0.0-12.0 % Eosinophils (%) (Auto) 1.2 0.0-7.0 % Basophils (%) (Auto) 1.0 0.0-2.0 % Neutrophils # (Auto) 5.1 1.6-8.6 10 ^3/uL Lymphocytes # (Auto) 1.4 0.4-5.4 10 ^3/uL Monocytes # (Auto) 0.7 0-1.3 10 ^3/uL Eosinophils # (Auto) 0.1 0-0.8 10 ^3/uL Basophils # (Auto) 0.1 0-0.2 10 ^3/uL Nucleated Red Blood Cells 0.1 % Sodium Level 140 136-145 mmol/L Potassium Level 4.9 3.5-5.1 mmol/L Chloride Level 106 98-107 mmol/L Carbon Dioxide Level 24 20-31 mmol/L Anion Gap 10 5-15 Blood Urea Nitrogen 25 H 9-23 mg/dL Creatinine 1.04 0.700-1.30 mg/dL Glomerular Filtration Rate Calc 72 >90 mL/min BUN/Creatinine Ratio 24.0 H 10.0-20.0 Serum Glucose 120 H 74-106 mg/dL Calcium Level 9.6 8.7-10.4 mg/dL Troponin I High Sensitivity 11 </=54 ng/L Assessment/Plan Assessment/Plan Assessment Acute hypoxic respiratory failure Diabetes mellitus Dementia Hypertension Plan Admit the patient to Med surge to the hospitalist D-dimer pending Med nebs Resume home medications Continue treatment per orders. Plan discussed with: Patient My Orders Orders - NELL ZAIDI AGACNP Procedure Category Date Status Time Donepezil Tablet PHA 11/08/24 In Process (Aricept Tablet) 22:00 Amiodarone Tablet PHA 11/08/24 In Process (Cordarone Tablet) 10:00 Carvedilol Tablet PHA 11/08/24 In Process (Coreg Tablet) 10:00 Atorvastatin (Lipitor) PHA 11/08/24 In Process 22:00 Apixaban (Eliquis) PHA 11/08/24 In Process 10:00 Albuterol Medneb PHA 11/07/24 In Process (Ventolin Medneb) 22:30 Basic Metabolic Panel LAB 11/08/24 Logged 04:00 Glucose Blood PHA 11/08/24 In Process (Accu-Chek Comfort 07:00 Insulin R (Human) PHA 11/08/24 In Process (Insulin R) 07:00 Dextrose 50% Syringe PHA 11/07/24 In Process 22:30 Admit ADMIT 11/07/24 Transmitted 22:16 Ondansetron Hcl PHA 11/07/24 In Process (Zofran) 22:30 Complete Blood Count LAB 11/08/24 Logged 04:00 Cardiac DIET 11/08/24 Transmitted Diet-2gna,Lofat,Lochol Breakfast Condition: Stable JUANY 11/07/24 In Process 22:16 Acetaminophen Tablet PHA 11/07/24 In Process (Tylenol Tablet) 22:30 Bedrest With Bathroom JUANY 11/07/24 In Process Privileg 22:16 Echo 2d Mode Cardiac US 11/07/24 Logged DOP 22:16 Date of Service: Nov 07, 2024 Billing Provider: NELL ZAIDI Common Visit Codes: [id number] INP/OBS CARE (MOD) NELL ZAIDI Nov 08, 2024 00:28
[2024-11-08 06:09] LABS: Eosinophils # (auto) 0.1 10 ^3/uL (0-0.8); Monocytes # (auto) 0.6 10 ^3/uL (0-1.3); Neutrophils # (auto) 3.3 10 ^3/uL (1.6-8.6); Red Cell Distribution Width 14.7 % (11.8-14.3)
[2024-11-08 06:12] LABS: Basophils # (auto) 0 10 ^3/uL (0-0.2); Basophils % (auto) 0.9 % (0.0-2.0); Eosinophils % (auto) 2.2 % (0.0-7.0); Hematocrit 39.5 % (41.0-53.0); Hemoglobin 13.4 g/dL (13.5-17.5); Lymphocytes # (auto) 1.4 10 ^3/uL (0.4-5.4); Lymphocytes % (auto) 26.1 % (10.0-50.0); Mean Corpuscular Hemoglobin 34.4 pg (28.0-32.0); Mean Corpuscular Hgb Conc. 33.8 g/dL (32.0-36.0); Mean Corpuscular Volume 101.5 fL (80.0-100.0); Monocytes % (auto) 10.8 % (0.0-12.0); Nucleated Red Blood Cells % 0.1 %; Platelet Count (auto) 252 10^3/uL (140-450); Red Blood Cells 3.89 10^6/uL (4.5-5.90); White Blood Cell 5.4 10^3/uL (4.4-10.8)
[2024-11-08 06:17] LABS: Potassium 4.5 mmol/L (3.5-5.1); Sodium 140 mmol/L (136-145)
[2024-11-08 06:18] LABS: Anion Gap 7 (5-15); Carbon Dioxide 25 mmol/L (20-31)
[2024-11-08 06:19] LABS: Calcium 9.2 mg/dL (8.7-10.4)
[2024-11-08 06:24] LABS: BUN/Creatinine Ratio 21.3 (10.0-20.0); Blood Urea Nitrogen 19 mg/dL (9-23); Glucose 104 mg/dL (74-106)
[2024-11-08 06:25] LABS: Chloride 108 mmol/L (98-107)
[2024-11-08] MEDS: InsuLIN REG 1unit/0.01ml Soln (100units/ml) SC SCH (06:25)
[2024-11-08] MEDS: ACCU-CHEK COMFORT CURVE STRIP VI SCH (06:25)
[2024-11-08] MEDS: PNEUMOCOCCAL VACC POLYS 25 MCG/0.5 ML VIAL IM ONE (10:00)
[2024-11-08] MEDS: APIXABAN 5 MG TAB PO SCH (10:15)
[2024-11-08] MEDS: AMIODARONE HCL 200 MG TAB PO SCH (10:15)
[2024-11-08] MEDS: CARVEDILOL 3.125 MG TAB PO SCH (10:17)
[2024-11-08] MEDS: FUROSEMIDE 20 MG TAB PO ONE (11:58)
[2024-11-08] MEDS: ATORVASTATIN 20 MG TAB PO SCH (21:09)
[2024-11-08] MEDS: DONEPEZIL HYDROCHLORIDE 5 MG TAB PO SCH (21:09)
[2024-11-09] VITALS (9 sets, daily range): BP systolic 97–146; BP diastolic 43–82; PULSE 66–79; RESP 17–18; TEMP 97.3–97.6; O2SAT 94–100
[2024-11-09 06:21] LABS: Anion Gap 10 (5-15); Carbon Dioxide 25 mmol/L (20-31); Chloride 105 mmol/L (98-107); Potassium 4.2 mmol/L (3.5-5.1); Sodium 140 mmol/L (136-145)
[2024-11-09 06:22] LABS: Calcium 9.3 mg/dL (8.7-10.4)
[2024-11-09 06:34] LABS: Blood Urea Nitrogen 29 mg/dL (9-23); Glucose 113 mg/dL (74-106); Magnesium 1.5 mg/dL (1.6-2.6)
[2024-11-09] MEDS: FUROSEMIDE 20 MG TAB PO SCH (08:49)
[2024-11-09 14:55] LABS: Base Excess 0.9 mmol/L (-2.0-3.0)
--- NOTE | 2024-11-09 16:35 | DVHPN2 ---
Subjective Admitted for SOB and hypoxia Changes from previous H/P or p: Changes Objective Vitals Vital Signs Date Time Temp Pulse Resp B/P (MAP) Pulse Ox O2 Delivery O2 Flow Rate FiO2 11/09/24 12:30 97.3 66 17 146/80 (102) 94 97.3 11/09/24 10:00 Nasal Cannula* 2 28 Intake/Output Intake and Output 11/09/24 07:00 Intake Total 705 ml Output Total 1100 ml Balance -395 ml Intake Oral 705 ml Output Urine Total 1100 ml # Bowel Movements 1 General Appearance: Alert, Oriented X3, Cooperative Lungs: Clear to auscultation, Normal air movement Cardiovascular: Regular rate, Normal S1, Normal S2 Abdomen: Normal bowel sounds, Soft, No tenderness Extremities: No edema Medications Current Medications Medications Dose Ordered Sig/Sony Route Start Time Stop Time Status Last Admin Dose Admin Donepezil HCl 10 mg HS PO 11/08/24 22:00 11/08/24 21:09 10 MG Amiodarone HCl 200 mg DAILY PO 11/08/24 10:00 11/09/24 08:48 200 MG Carvedilol 3.125 mg Q12HR PO 11/08/24 10:00 11/09/24 08:49 3.125 MG Atorvastatin Calcium 40 mg HS PO 11/08/24 22:00 11/08/24 21:09 40 MG Apixaban 5 mg BID PO 11/08/24 10:00 11/09/24 08:48 5 MG Albuterol 2.5 mg Q6HPRN PRN NEB 11/07/24 22:30 Diagnostic Test (Pha) 1 strip ACHS 11/08/24 07:00 11/09/24 11:15 1 STRIP Insulin Human Regular ACHS SC 11/08/24 07:00 11/09/24 11:23 2 UNITS Dextrose 50 ml UD PRN IV 11/07/24 22:30 Ondansetron HCl 4 mg Q4HP PRN IV 11/07/24 22:30 Acetaminophen 650 mg Q6HP PRN PO 11/07/24 22:30 Furosemide 40 mg DAILY PO 11/09/24 10:00 11/09/24 08:49 40 MG Laboratory Results Laboratory Tests 11/08/24 05:19 11/09/24 04:55 Chemistry Test 11/09/24 04:55 Calcium Level 9.3 mg/dL (8.7-10.4) Magnesium Level 1.5 mg/dL (1.6-2.6) L Blood Gas Results Test 11/09/24 14:43 Arterial Blood pH 7.496 (7.350-7.450) FiO2 % 21.0 Assessment/Plan Assessment/Plan Hypoxia Rule out CHF Elevated D-Dimer DM2 Dementia Mixed hyperlipidemia HTN Hypomagnesemia Afib PLAN: Replace Mg Lasix po Echo: Pending Eliquis Amiodarone Aricept Physical therapy Plan discussed with: Patient My Orders Orders - LUNA OYU MD Procedure Category Date Status Time Abg W/ Co-Ox RT 11/09/24 Logged 14:13 Magnesium Oxide PHA 11/09/24 Transmitted Tablet (Mag-Ox Tablet) 16:30 Date of Service: Nov 09, 2024 Billing Provider: LUNA YOU MD Common Visit Codes: NOT BILLABLE LUNA YOU MD Nov 09, 2024 16:35
[2024-11-09] MEDS: MAGNESIUM OXIDE 400 MG TAB PO ONE (17:12)
--- NOTE | 2024-11-09 17:35 | DVH ---
Bilateral lower extremity venous duplex Clinical History: elevated ddimer Comparison: None Technique: Duplex Doppler evaluation of the deep venous systems of both lower extremities from the co mmon femoral veins to the popliteal veins including color Doppler and spectral/pulsed waveform analys is was performed. Findings: RIGHT SIDE: The common femoral vein demonstrates appropriate compressibility and waveform variability. There is compressibility/patency of the great saphenous vein at the proximal thigh. The femoral vein demonstrates appropriate compressibility and waveform variability. The deep femoral vein demonstrates appropriate compressibility and waveform variability. The popliteal vein demonstrates appropriate compressibility and waveform variability. There is color flow at the tibioperoneal trunk and in the posterior tibial vein. LEFT SIDE: The common femoral vein demonstrates appropriate compressibility and waveform variability. There is compressibility/patency of the great saphenous vein at the proximal thigh. The femoral vein demonstrates appropriate compressibility and waveform variability. The deep femoral vein demonstrates appropriate compressibility and waveform variability. The popliteal vein demonstrates appropriate compressibility and waveform variability. There is color flow at the tibioperoneal trunk and in the posterior tibial vein. Impression: 1. No right or left femoropopliteal venous thrombosis.
[2024-11-10] VITALS (12 sets, daily range): BP systolic 105–147; BP diastolic 60–88; PULSE 64–78; RESP 17–18; TEMP 97.3–98.2; O2SAT 88–98
[2024-11-10 06:22] LABS: Chloride 103 mmol/L (98-107); Potassium 4.3 mmol/L (3.5-5.1); Sodium 139 mmol/L (136-145)
[2024-11-10 06:23] LABS: Anion Gap 9 (5-15); Carbon Dioxide 27 mmol/L (20-31)
[2024-11-10 06:24] LABS: Calcium 9.7 mg/dL (8.7-10.4)
[2024-11-10 06:29] LABS: Magnesium 1.8 mg/dL (1.6-2.6)
[2024-11-10 06:43] LABS: BUN/Creatinine Ratio 24.3 (10.0-20.0); Blood Urea Nitrogen 37 mg/dL (9-23); Glucose 135 mg/dL (74-106)
[2024-11-10 09:15] LABS: Hepatitis B Surface Antigen Negative (Negative); Hepatitis C Antibody Negative (Negative)
[2024-11-10] MEDS: IOHEXOL 350 MG/ML 100ML IJ ONE (09:20)
--- NOTE | 2024-11-10 10:24 | DVH ---
CTA Chest with intravenous contrast INDICATION: hypoxia COMPARISON: None TECHNIQUE: Multidetector spiral CTA of the chest was performed of the chest with intravenous contrast . PULMONARY ANGIOGRAPHY PROTOCOL was utilized using a bolus-tracking technique centered on the main p ulmonary artery. Axial, coronal and sagittal multiplanar and MIP reformats were performed. CONTRAST: Type of contrast: Omni 350 Contrast injected: 100 ml Radiation dose : Chest: CTDI volume is 15.54 mGy. Dose-length product is 546.66 mGy*cm The dose indicators for CT are the volume computed Tomography (CT) dose Index (CTDIvol) and the dose Length product (DLP), and are measured in units of mGy and mGy-cm, respectively. These indicators are not patient dose, but values generated from the CT scanner acquisition factors. The report includes radiation exposure data for exposures received during this examination. Findings: Pulmonary artery: No pulmonary embolism Lower neck: Normal thyroid. Lungs: Masslike consolidation in the right lung base. Atelectasis and scarring in the left lung base. Heart/Vascular Structures: Normal heart size. No pericardial effusion. Lymph Nodes: Subcentimeter mediastinal hilar lymph nodes. Pleura: No pleural effusion or significant pneumothorax. Musculoskeletal: No acute osseous abnormality. Soft tissues: Normal. Upper abdomen: Sludge in the gallbladder. Possible gallbladder wall thickening. Bilateral renal calc estrella. Left renal cyst. IMPRESSION: 1. No pulmonary embolism. 2. Masslike consolidation right lower lung. Could represent rounded atelectasis. Infectious/ inflamma tory or neoplastic etiologies are not excluded. Clinical correlation and continued follow-up is recom mended. If there is high clinical concern consider further evaluation with PET-CT and/or CT-guided bi opsy. 3. Sludge in the gallbladder with likely gallbladder wall thickening. Consider further evaluation wit h right upper quadrant ultrasound. HS:Y
--- NOTE | 2024-11-10 11:01 | DVHPN2 ---
Subjective No new complaints His creatinine went up after he was given Lasix Echocardiogram is still pending Changes from previous H/P or p: Changes Objective Vitals Vital Signs Date Time Temp Pulse Resp B/P (MAP) Pulse Ox O2 Delivery O2 Flow Rate FiO2 11/10/24 09:00 97.5 70 18 123/79 (94) 94 97.5 11/10/24 08:00 Room Air* 0 21 Intake/Output Intake and Output 11/10/24 07:00 Intake Total 936 ml Output Total 150 ml Balance 786 ml Intake Oral 936 ml Output Urine Total 150 ml # Voids 3 General Appearance: Alert, Oriented X3, Cooperative Lungs: Clear to auscultation, Normal air movement Cardiovascular: Regular rate, Normal S1, Normal S2 Abdomen: Normal bowel sounds, Soft, No tenderness Extremities: No edema Medications Current Medications Medications Dose Ordered Sig/Sony Route Start Time Stop Time Status Last Admin Dose Admin Donepezil HCl 10 mg HS PO 11/08/24 22:00 11/09/24 21:42 10 MG Amiodarone HCl 200 mg DAILY PO 11/08/24 10:00 11/09/24 08:48 200 MG Carvedilol 3.125 mg Q12HR PO 11/08/24 10:00 11/09/24 21:52 3.125 MG Atorvastatin Calcium 40 mg HS PO 11/08/24 22:00 11/09/24 21:42 40 MG Apixaban 5 mg BID PO 11/08/24 10:00 11/09/24 21:39 5 MG Albuterol 2.5 mg Q6HPRN PRN NEB 11/07/24 22:30 Diagnostic Test (Pha) 1 strip ACHS 11/08/24 07:00 11/10/24 06:33 1 STRIP Insulin Human Regular ACHS SC 11/08/24 07:00 11/10/24 06:33 2 UNITS Dextrose 50 ml UD PRN IV 11/07/24 22:30 Ondansetron HCl 4 mg Q4HP PRN IV 11/07/24 22:30 Acetaminophen 650 mg Q6HP PRN PO 11/07/24 22:30 Laboratory Results Laboratory Tests 11/08/24 05:19 11/10/24 04:50 Chemistry Test 11/10/24 04:50 Calcium Level 9.7 mg/dL (8.7-10.4) Magnesium Level 1.8 mg/dL (1.6-2.6) Blood Gas Results Test 11/09/24 14:43 Arterial Blood pH 7.496 (7.350-7.450) FiO2 % 21.0 Assessment/Plan Assessment/Plan Hypoxia Rule out CHF Elevated D-Dimer DM2 Dementia Mixed hyperlipidemia HTN Hypomagnesemia Afib PLAN: Replace Mg Lasix po Echo: Pending Eliquis Amiodarone Aricept Physical therapy 11/10/2024: MARILUZ: Discontinue Lasix Weakness: Physical therapy evaluation Rule out heart failure: Echocardiogram is pending MARILUZ: Monitor the kidney function closely AFib: Amiodarone and Eliquis Dementia: Aricept Plan discussed with: Patient My Orders Orders - LUNA YOU MD Procedure Category Date Status Time Abg W/ Co-Ox RT 11/09/24 Logged 14:13 Bilat Lower Dvt US 11/09/24 Resulted 16:32 Pt Request For Service PT 11/09/24 Logged 16:[address] 11/10/24 Resulted Contrast 09:00 Date of Service: Nov 10, 2024 Billing Provider: LUNA YOU MD Common Visit Codes: NOT BILLABLE LUNA YOU MD Nov 10, 2024 11:00
--- NOTE | 2024-11-10 17:10 | DVHSR ---
APPROVED REPORT EXAM: Two-dimensional and M-mode echocardiogram with Doppler and color Doppler. Blood Pressure: 159/89 mmHg INDICATION EF RISK FACTORS Height: 67, Weight: 169 DIMENSIONS LVDd4.4 (3.8-5.7cm)LA (2D)3.9 (1.9-4.0cm)Aortic Root3.3 (2.0-3.7cm) LVDs3.8 (2.5-4.0cm)LA (MM) (1.9-4.0cm)Aortic Cusp Exc1.7 (1.5-2.0cm) EF (%) 31.0 (55-70%)Rt. Atrium (1.9-4.0cm)Asc. Aorta2.8 cm Mitral Valve MitralMitral Stenosis E wave1.32m/sMV Mean GR.mmHg A wavem/sMV Peak GR.87mmHg E/A ratio0.02D MVAcm2 Aortic Valve Aortic ValveAortic Stenosis V10.88m/Tej Mean GR.4mmHg V21.39m/Tej Peak GR.8mmHg LVOT Diameter2.4 (1.8-2.4cm)Doppler AVA2.86cm2 Other Information Technically limited study due to patient position. Conclusion Technically a good study. Sinus rhythm. Mild aortic root enlargement. Concentric LVH. Valves appear to be structurally normal. Mild mitral annular calcification. Mild aortic sclerosis w ithout impingement on motion. Left ventricular systolic performance is diminished. EF is proximally 30% with severe global hypokin esis and abnormal septal motion. Mild TR. Impaired diastolic relaxation. No pericardial effusion masses or vegetations discernible.
[2024-11-11] VITALS (12 sets, daily range): BP systolic 109–168; BP diastolic 62–89; PULSE 58–101; RESP 16–18; TEMP 96.9–97.7; O2SAT 91–98
[2024-11-11 06:37] LABS: Anion Gap 10 (5-15); Carbon Dioxide 26 mmol/L (20-31); Chloride 103 mmol/L (98-107); Potassium 4.2 mmol/L (3.5-5.1); Sodium 139 mmol/L (136-145)
[2024-11-11 06:38] LABS: Calcium 9.6 mg/dL (8.7-10.4)
[2024-11-11 06:43] LABS: BUN/Creatinine Ratio 26.3 (10.0-20.0)
[2024-11-11 06:44] LABS: Blood Urea Nitrogen 31 mg/dL (9-23); Glucose 107 mg/dL (74-106)
--- NOTE | 2024-11-11 11:27 | DVH ---
EXAM: US GALLBLADDER INDICATION: wall thickening TECHNIQUE: Multiple real-time sonographic images were obtained of the right upper quadrant. COMPARISON: CT angiography of the chest performed on 11/10/2024. FINDINGS: The liver demonstrates homogenous echotexture without focal mass lesions. There is hepatop edal color doppler flow in the main portal vein. There is no intrahepatic biliary ductal dilatation. The gallbladder is without evidence of stone or sludge. There is sludge in the gallbladder. Gallblad prabhjot wall thickening noted measuring 0.3 cm. The common bile duct measures 0.6 cm. There is a negati ve sonographic Bahena's sign. The right kidney measures 11.1 cm. The right kidney is normal in contour, size, and shape. The ech ogenicity is normal. There is no hydronephrosis. The pancreas is not well visualized due to overlying bowel gas. Visualized portions of the aorta and inferior vena cava are unremarkable. No evidence of ascites. IMPRESSION: 1. Sludge in the gallbladder. Mild gallbladder wall thickening. Negative sonographic bahena's sign.
--- NOTE | 2024-11-11 18:59 | DVHPN2 ---
Subjective Patient was denies any shortness of breath Reviewed: Care Plan, H&P, Labs, Medications Changes from previous H/P or p: No Changes General: Per HPI Objective Vitals Vital Signs Date Time Temp Pulse Resp B/P (MAP) Pulse Ox O2 Delivery O2 Flow Rate FiO2 11/11/24 17:03 96.9 80 17 143/77 (99) 91 96.9 11/11/24 10:00 Room Air* 0 21 Intake/Output Intake and Output 11/11/24 07:00 Intake Total 1000 ml Output Total 1350 ml Balance -350 ml Intake Oral 1000 ml Output Urine Total 1350 ml General Appearance: Alert, Oriented X3, Cooperative HEENT: Atraumatic, PERRLA Lungs: Clear to auscultation, Normal air movement Cardiovascular: Regular rate, Normal S1, Normal S2 Abdomen: Normal bowel sounds, Soft, No tenderness Extremities: No edema Skin: Dry, Intact Medications Current Medications Medications Dose Ordered Sig/Sony Route Start Time Stop Time Status Last Admin Dose Admin Donepezil HCl 10 mg HS PO 11/08/24 22:00 11/10/24 22:44 10 MG Amiodarone HCl 200 mg DAILY PO 11/08/24 10:00 11/11/24 10:34 200 MG Carvedilol 3.125 mg Q12HR PO 11/08/24 10:00 11/11/24 10:34 3.125 MG Atorvastatin Calcium 40 mg HS PO 11/08/24 22:00 11/10/24 22:42 40 MG Apixaban 5 mg BID PO 11/08/24 10:00 11/11/24 10:33 5 MG Albuterol 2.5 mg Q6HPRN PRN NEB 11/07/24 22:30 Diagnostic Test (Pha) 1 strip ACHS 11/08/24 07:00 11/11/24 16:41 1 STRIP Insulin Human Regular ACHS SC 11/08/24 07:00 11/11/24 16:43 2 UNITS Dextrose 50 ml UD PRN IV 11/07/24 22:30 Ondansetron HCl 4 mg Q4HP PRN IV 11/07/24 22:30 Acetaminophen 650 mg Q6HP PRN PO 11/07/24 22:30 Laboratory Results Laboratory Tests 11/08/24 05:19 11/11/24 05:05 Chemistry Test 11/11/24 05:05 Calcium Level 9.6 mg/dL (8.7-10.4) Labs and/or images reviewed: Labs reviewed by me, Image(s) reviewed by me Assessment/Plan Assessment/Plan -acute hypoxic respiratory failure -acute systolic heart failure with ejection fraction 30% -history of marijuana abuse -primary hypertension -dementia -pulmonary nodule Plan: -CT angiogram of the chest reveals masslike effect, two right lung. Measured by myself to be approximately 3.1 cm in diameter. -pulmonary consultation -O2 supplementation to keep saturation greater than 90% -start guideline directed medical therapy for heart failure -continue Aricept -continue anticoagulation Total time spent with patient discussing and formulating plan of care: 35 minutes. This medical document was created using an electronic medical record system with [employer] dictation system. Although this document has been carefully reviewed, there may still be some phonetic and typographical errors. These areas are purely typographical due to imperfections of the software programs, and do not reflect any compromise in the patient's medical care. Plan discussed with: Patient Date of Service: Nov 11, 2024 Billing Provider: SRINIVASA GONZALEZ NP Common Visit Codes: [id number] INP/OBS CARE(HIGH) SRINIVASA GONZALEZ NP Nov 11, 2024 18:59
[2024-11-12] VITALS (11 sets, daily range): BP systolic 125–153; BP diastolic 62–90; PULSE 65–70; RESP 17–19; TEMP 96.6–97.8; O2SAT 91–100
[2024-11-12] MEDS: DOXYCYCLINE 100MG/100ML 100 ML IV SCH (11:45)
[2024-11-12] MEDS: cefTRIAXone 1GM/50ML D5W 50 ML IV SCH (12:15)
--- NOTE | 2024-11-12 12:18 | DVHPN2 ---
Subjective Patient was denies any shortness of breath Reviewed: Care Plan, H&P, Labs, Medications Changes from previous H/P or p: No Changes General: Per HPI Objective Vitals Vital Signs Date Time Temp Pulse Resp B/P (MAP) Pulse Ox O2 Delivery O2 Flow Rate FiO2 11/12/24 11:42 66 136/89 11/12/24 10:00 100 Nasal Cannula* 2 28 11/12/24 08:56 97.6 18 97.6 Intake/Output Intake and Output 11/12/24 07:00 Intake Total 950 ml Balance 950 ml Intake Oral 950 ml # Voids 11 General Appearance: Alert, Oriented X3, Cooperative HEENT: Atraumatic, PERRLA Lungs: Clear to auscultation, Normal air movement Cardiovascular: Regular rate, Normal S1, Normal S2 Abdomen: Normal bowel sounds, Soft, No tenderness Extremities: No edema Skin: Dry, Intact Medications Current Medications Medications Dose Ordered Sig/Sony Route Start Time Stop Time Status Last Admin Dose Admin Donepezil HCl 10 mg HS PO 11/08/24 22:00 11/11/24 21:54 10 MG Amiodarone HCl 200 mg DAILY PO 11/08/24 10:00 11/12/24 08:36 200 MG Carvedilol 3.125 mg Q12HR PO 11/08/24 10:00 11/12/24 08:37 3.125 MG Atorvastatin Calcium 40 mg HS PO 11/08/24 22:00 11/11/24 21:54 40 MG Apixaban 5 mg BID PO 11/08/24 10:00 11/12/24 08:36 5 MG Albuterol 2.5 mg Q6HPRN PRN NEB 11/07/24 22:30 Diagnostic Test (Pha) 1 strip ACHS 11/08/24 07:00 11/12/24 11:41 1 STRIP Insulin Human Regular ACHS SC 11/08/24 07:00 11/11/24 16:43 2 UNITS Dextrose 50 ml UD PRN IV 11/07/24 22:30 Ondansetron HCl 4 mg Q4HP PRN IV 11/07/24 22:30 Acetaminophen 650 mg Q6HP PRN PO 11/07/24 22:30 Doxycycline Hyclate 100 ml @ 50 mls/hr Q12H IV 11/12/24 11:45 Ceftriaxone Sodium 50 ml @ 100 mls/hr DAILY@09 IV 11/12/24 11:45 Laboratory Results Laboratory Tests 11/08/24 05:19 11/11/24 05:05 Labs and/or images reviewed: Labs reviewed by me, Image(s) reviewed by me Assessment/Plan Assessment/Plan -acute hypoxic respiratory failure -acute systolic heart failure with ejection fraction 30% -history of marijuana abuse -primary hypertension -dementia -pulmonary nodule Plan: Events: Patient had period of hypoxia with O2 saturation dropping to 70%. Placed on nasal cannula 2 L. -pulmonary consultation: recommendations appreciated -O2 supplementation to keep saturation greater than 90% -start guideline directed medical therapy for heart failure -continue Aricept -continue anticoagulation -further course of treatment per pulmonology recommendations Total time spent with patient discussing and formulating plan of care: 35 minutes. This medical document was created using an electronic medical record system with [employer] dictation system. Although this document has been carefully reviewed, there may still be some phonetic and typographical errors. These areas are purely typographical due to imperfections of the software programs, and do not reflect any compromise in the patient's medical care. Plan discussed with: Patient, Other (RN) My Orders Orders - SRINIVASA GONZALEZ NP Procedure Category Date Status Time *Consult CONS 11/11/24 Transmitted / 18:57 Lactate Dehydrogenase LAB 11/12/24 Transmitted 12:15 Date of Service: Nov 12, 2024 Billing Provider: SRINIVASA GONZALEZ NP Common Visit Codes: [id number] INP/OBS CARE(HIGH) SRINIVASA GONZALEZ NP Nov 12, 2024 12:18
[2024-11-12] MEDS ORDERED: methylPREDNISolone SOD SUCC 500 MG in SODIUM CHL 0.9% 100 ML IV ONE (13:15)
[2024-11-12] MEDS: methylPREDNISolone SOD SUCC 125 MG/2 ML VL IV ONE (13:22)
[2024-11-12] MEDS: diphenhdrAMINE HCL 50 MG/1 ML VL IV ONE (13:22)
--- NOTE | 2024-11-12 19:03 | DVHINCON2 ---
Date of service: Nov 12, 2024 Referring Physician Cameron Medina NP Reason for Consultation Acute hypoxic respiratory failure and pulmonary nodule History of Present Illness An 84-year-old man with PMHx of diabetes mellitus, dementia, dyslipidemia, hypertension and cancer who presented to ED on 11/07/24 for evaluation of shortness of breath. Patient was seen at urgent care on day of presentation and had an episode where his saturation dropped to the 70s, so he was brought in for evaluation. Patient was noted to be on 2 L nasal cannula, saturating at 94%. He denied chest pain. History is limited due to patient with dementia. Patient was admitted for further care, and pulmonary consultation is requested for evaluation and management due to the above findings. Review of Systems: 14-point review of systems negative unless otherwise noted above. Past Medical History: Diabetes mellitus, dementia, dyslipidemia, hypertension and cancer Past Surgical History: None Medications: Reviewed. Allergies: No known drug allergies. Family History: Congestive heart failure Social History: Nonsmoker. No alcohol or illicit drug use. Family History: FH: CHF (congestive heart failure) G8 FATHER, , Age: 60 years and older, Cause: CHF (congestive heart failure) Allergies: Coded Allergies: NO KNOWN ALLERGIES (Unverified , 11/10/10) Home Meds Reported Medications Omeprazole (Omeprazole Dr) 40 Mg Cap, 1 CAP PO QAM for 30 Days, #30 11/09/24 Folic Acid (Folic Acid) 1 Mg Tab, 1 TAB PO DAILY for 30 Days, #30 11/09/24 Multiple Vitamin (Multivitamin) 1 Tab Tab, 1 TAB PO DAILY for 30 Days, #30 11/09/24 Atorvastatin Calcium (ATORVASTATIN CALCIUM) 40 Mg Tab, 1 TAB PO DAILY for 30 Days, #30 11/09/24 Metoprolol Succinate (Metoprolol Succinate Er) 25 Mg Tab, 1 TAB PO DAILY for 30 Days, #30 11/09/24 Tramadol Hcl (Tramadol Hcl) 50 Mg Tab, 1 TAB PO TID PRN for 10 Days, #30 11/09/24 Donepezil Hydrochloride (DONEPEZIL HCL) 10 Mg Tab, 1 TAB PO DAILY for 31 Days, #31 11/09/24 Trazodone Hcl (Trazodone Hcl) 100 Mg Tab, 1 TAB PO DAILY for 31 Days, #31 4/2/25 Amiodarone HCl (Amiodarone HCl) 200 Mg Tab, 1 TAB PO BID for 30 Days, #60 11/09/24 Apixaban Base (ELIQUIS) 5 Mg Tab, 1 TAB PO BID for 14 Days, #28 11/09/24 Sacubitril-Valsartan (Entresto 24-26 mg) 1 Tab Tab, 1 TAB PO BID for 14 Days, #28 11/09/24 Current Medications Current Medications Medications (Trade) Dose Ordered Sig/Sony Route PRN Reason Start Time Stop Time Status Last Admin Doxycycline Hyclate 100 ml @ 50 mls/hr Q12H IV 11/12/24 11:45 Ceftriaxone Sodium 50 ml @ 100 mls/hr DAILY@09 IV 11/12/24 11:45 11/12/24 12:15 Albuterol (Ventolin Medneb) 2.5 mg Q6HWA [facility] 11/12/24 18:00 Ipratropium [place] (Atrovent Medneb) 0.5 mg Q6HWA [facility] 11/12/24 18:00 Vital Signs Vital Signs Date Time Temp Pulse Resp B/P (MAP) Pulse Ox O2 Delivery O2 Flow Rate FiO2 11/12/24 18:41 142/86 (104) 11/12/24 17:08 97.6 68 18 98 97.6 11/12/24 10:00 Nasal Cannula* 2 28 Physical Exam Gen.: Patient lying in bed in no apparent distress. On supplemental oxygen. Head: Normocephalic, atraumatic. Eyes: EOMI/PERRLA. Ears: Normal hearing. Normal anatomy. Neck/trachea: Trachea midline, supple. Nose: Normal external anatomy. Mouth: Moist mucous membranes. Chest: Decreased air entry bilaterally. No wheezing or rhonchi. Cardiovascular: Positive S1, positive S2. Regular rate and rhythm. Abdomen: Positive bowel sounds in all 4 quadrants. Soft, non-tender, non- distended. : Deferred. Rectal: Deferred. Skin: Warm, dry. Intact. Extremities: 2+ radial pulses bilaterally. No lower extremity edema. Neuro: Awake, alert, oriented x3. No gross motor or sensory deficits. Cranial nerves II through XII intact. Gait not assessed. Labs/Diagnostic Data Labs Test 11/12/24 16:22 11/12/24 13:14 11/11/24 05:05 11/10/24 04:50 Range/Units POC Glucose 160 H 70-106 mg/dl Lactate Dehydrogenase 230 120-246 U/L Sodium Level 139 136-145 mmol/L Potassium Level 4.2 3.5-5.1 mmol/L Chloride Level 103 98-107 mmol/L Carbon Dioxide Level 26 20-31 mmol/L Anion Gap 10 5-15 Blood Urea Nitrogen 31 H 9-23 mg/dL Creatinine 1.18 0.700-1.30 mg/dL Glomerular Filtration Rate Calc 62 >90 mL/min BUN/Creatinine Ratio 26.3 H 10.0-20.0 Serum Glucose 107 H 74-106 mg/dL Calcium Level 9.6 8.7-10.4 mg/dL Magnesium Level 1.8 1.6-2.6 mg/dL Test 11/09/24 14:43 11/08/24 05:19 11/07/24 22:39 11/07/24 11:14 Range/Units Blood Gas Specimen Type Arterial Blood Gas Sample Site Right radial Blood Gas Patient Temperature 37.0 Arterial Blood Date Drawn [id number] Arterial Blood pH 7.496 H 7.350-7.450 Arterial Blood Partial Pressure CO2 30.9 L 35.0-48.0 mmHg Arterial Blood Partial Pressure O2 71.2 L 83.0-108.0 mmHg Arterial Blood HCO3 23.3 21.0-28.0 mmol/L Arterial Blood Oxygen Saturation 94.1 94.0-98.0 % Arterial Blood Base Excess 0.9 -2.0-3.0 mmol/L Arterial Blood Oxyhemoglobin 93.0 L 94.0-98.0 % Arterial Blood Carboxyhemoglobin 0.8 0.5-1.5 % Arterial Blood Methemoglobin 0.4 0.0-1.5 % Ilya Test Yes Blood Gas Total Hemoglobin 13.80 13.5-17.5 g/dL Blood Gas Liter Flow 0.00 Blood Gas Modality Room air FiO2 % 21.0 White Blood Count 5.4 # 4.4-10.8 10^3/uL Red Blood Count 3.89 L 4.5-5.90 10^6/uL Hemoglobin 13.4 L 13.5-17.5 g/dL Hematocrit 39.5 L 41.0-53.0 % Mean Corpuscular Volume 101.5 H 80.0-100.0 fL Mean Corpuscular Hemoglobin 34.4 H 28.0-32.0 pg Mean Corpuscular Hemoglobin Concent 33.8 32.0-36.0 g/dL Red Cell Distribution Width 14.7 H 11.8-14.3 % Platelet Count 252 140-450 10^3/uL Mean Platelet Volume 6.5 L 6.9-10.8 fL Neutrophils (%) (Auto) 60.0 37.0-80.0 % Lymphocytes (%) (Auto) 26.1 10.0-50.0 % Monocytes (%) (Auto) 10.8 0.0-12.0 % Eosinophils (%) (Auto) 2.2 0.0-7.0 % Basophils (%) (Auto) 0.9 0.0-2.0 % Neutrophils # (Auto) 3.3 1.6-8.6 10 ^3/uL Lymphocytes # (Auto) 1.4 0.4-5.4 10 ^3/uL Monocytes # (Auto) 0.6 0-1.3 10 ^3/uL Eosinophils # (Auto) 0.1 0-0.8 10 ^3/uL Basophils # (Auto) 0 0-0.2 10 ^3/uL Nucleated Red Blood Cells 0.1 % Hepatitis B Surface Antigen Negative Negative Hepatitis C Antibody Negative Negative D-Dimer, Quantitative 1.85 H 0.0-0.49 mg/L FEU B-Type Natriuretic Peptide 387.08 0-100 pg/mL Troponin I High Sensitivity 11 </=54 ng/L Assessment Impression: Acute hypoxic respiratory failure Dependence on supplemental oxygen Pulmonary nodule Acute systolic CHF with ejection fraction 30% History of marijuana abuse Primary hypertension Dementia Plan: Supplemental oxygen 1 LPM NC Titrate to keep O2 sats above 92%. Taper O2 as tolerated. Patient required overnight oxygen - noted to be confused at night CT angio on 11/10/24 revealed no pulmonary embolism. Mass-like consolidation in right lower lung. Recommend repeat CT scan of chest in 4-8 weeks after antibiotics Antibiotics - start doxycycline and ceftriaxone IV steroids Eliquis BID Accu-Cheks, ISS. Monitor renal function. Monitor electrolytes. Supplement as necessary. Monitor ins and outs. DVT prophylaxis. Prognosis: Poor given patient's multiple co-morbidities. Rest of plan per hospitalist and other consultants. Thank you, AARTI Medina, for allowing me to participate in this patient's care. Further recommendations will depend on the patient's clinical course. Please do not hesitate to contact me if you have any questions or concerns. This medical document was created using an electronic medical record system with [employer] dictation system. Although these documentations are being carefully reviewed, there may still be some phonetic and typographical changes. The errors are purely typographical, due to imperfection on the software program, and do not reflect any compromise in the patient's medical care. Plan discussed with: Patient, Other (STEPHANIE Dong/AARTI Medina/) DAYAN ANDRE MD Nov 12, 2024 19:03
[2024-11-13] VITALS (12 sets, daily range): BP systolic 119–159; BP diastolic 64–84; PULSE 57–66; RESP 16–19; TEMP 96.1–97.6; O2SAT 91–100
[2024-11-13] MEDS: IPRATROPIUM BROM 0.5 MG/2.5ML INH SOL NEB SCH (06:25)
[2024-11-13] MEDS: ALBUTEROL SULF 2.5 MG/0.5ML(0.5%) NEB SOLN NEB SCH (06:25)
--- NOTE | 2024-11-13 14:05 | DVHPN2 ---
Subjective Patient was denies any shortness of breath Reviewed: Care Plan, H&P, Labs, Medications General: Per HPI Objective Vitals Vital Signs Date Time Temp Pulse Resp B/P (MAP) Pulse Ox O2 Delivery O2 Flow Rate FiO2 11/13/24 13:06 97.5 66 19 151/84 (106) 99 97.5 11/13/24 11:29 Nasal Cannula* 3 32 Intake/Output Intake and Output 11/13/24 07:00 Intake Total 750 ml Output Total 300 ml Balance 450 ml Intake Oral 700 ml IV Total 50 ml Output Urine Total 300 ml # Voids 5 General Appearance: Alert, Oriented X3, Cooperative HEENT: Atraumatic, PERRLA Lungs: Clear to auscultation, Normal air movement Cardiovascular: Regular rate, Normal S1, Normal S2 Abdomen: Normal bowel sounds, Soft, No tenderness Extremities: No edema Skin: Dry, Intact Medications Current Medications Medications Dose Ordered Sig/Sony Route Start Time Stop Time Status Last Admin Dose Admin Donepezil HCl 10 mg HS PO 11/08/24 22:00 11/12/24 21:24 10 MG Amiodarone HCl 200 mg DAILY PO 11/08/24 10:00 11/13/24 10:28 200 MG Carvedilol 3.125 mg Q12HR PO 11/08/24 10:00 11/13/24 10:29 3.125 MG Atorvastatin Calcium 40 mg HS PO 11/08/24 22:00 11/12/24 21:23 40 MG Apixaban 5 mg BID PO 11/08/24 10:00 11/13/24 10:28 5 MG Albuterol 2.5 mg Q6HPRN PRN NEB 11/07/24 22:30 Diagnostic Test (Pha) 1 strip ACHS 11/08/24 07:00 11/13/24 12:01 1 STRIP Insulin Human Regular ACHS SC 11/08/24 07:00 11/13/24 05:49 2 UNITS Dextrose 50 ml UD PRN IV 11/07/24 22:30 Ondansetron HCl 4 mg Q4HP PRN IV 11/07/24 22:30 Acetaminophen 650 mg Q6HP PRN PO 11/07/24 22:30 Doxycycline Hyclate 100 ml @ 50 mls/hr Q12H IV 11/12/24 11:45 11/12/24 23:44 50 MLS/HR Ceftriaxone Sodium 50 ml @ 100 mls/hr DAILY@09 IV 11/12/24 11:45 Hold 11/12/24 12:15 100 MLS/HR Albuterol 2.5 mg Q6HWA [facility] 11/12/24 18:00 11/13/24 11:29 2.5 MG Ipratropium [place] 0.5 mg Q6HWA [facility] 11/12/24 18:00 11/13/24 11:29 0.5 MG Laboratory Results Laboratory Tests 11/08/24 05:19 11/11/24 05:05 Assessment/Plan Assessment/Plan -acute hypoxic respiratory failure -acute systolic heart failure with ejection fraction 30% -history of marijuana abuse -primary hypertension -dementia -pulmonary nodule Plan: Events: Patient had period of hypoxia with O2 saturation dropping to 70%. Placed on nasal cannula 2 L. -pulmonary consultation: recommendations appreciated -O2 supplementation to keep saturation greater than 90% -start guideline directed medical therapy for heart failure -continue Aricept -continue anticoagulation -further course of treatment per pulmonology recommendations Total time spent with patient discussing and formulating plan of care: 35 minutes. This medical document was created using an electronic medical record system with [employer] dictation system. Although this document has been carefully reviewed, there may still be some phonetic and typographical errors. These areas are purely typographical due to imperfections of the software programs, and do not reflect any compromise in the patient's medical care. SRINIVASA GONZALEZ NP Nov 13, 2024 14:05
--- NOTE | 2024-11-13 19:03 | DVHPN2 ---
Progress Note - Dictate Date Seen: Nov 13, 2024 Medical Necessity Reason Pt with a Central, PICC or Fol: No Subjective Patient seen and examined at bedside. Remains on supplemental oxygen Overnight events reviewed. vital signs Vital Sign Date Time Temp Pulse Resp B/P (MAP) Pulse Ox O2 Delivery O2 Flow Rate FiO2 11/13/24 18:26 97.5 66 19 99 11/13/24 16:56 119/64 (82) 11/13/24 11:29 Nasal Cannula* 3 32 Total Intake and Output 11/12/24 11/12/24 11/13/24 15:00 23:00 07:00 Intake Total 50 ml 300 ml 400 ml Output Total 300 ml Balance 50 ml 300 ml 100 ml medications Current Medications Medications Dose Ordered Sig/Sony Route Start Time Stop Time Status Last Admin Dose Admin Donepezil HCl 10 mg HS PO 11/08/24 22:00 11/12/24 21:24 10 MG Amiodarone HCl 200 mg DAILY PO 11/08/24 10:00 11/13/24 10:28 200 MG Carvedilol 3.125 mg Q12HR PO 11/08/24 10:00 11/13/24 10:29 3.125 MG Atorvastatin Calcium 40 mg HS PO 11/08/24 22:00 11/12/24 21:23 40 MG Apixaban 5 mg BID PO 11/08/24 10:00 11/13/24 10:28 5 MG Albuterol 2.5 mg Q6HPRN PRN NEB 11/07/24 22:30 Diagnostic Test (Pha) 1 strip ACHS 11/08/24 07:00 11/13/24 12:01 1 STRIP Insulin Human Regular ACHS SC 11/08/24 07:00 11/13/24 05:49 2 UNITS Dextrose 50 ml UD PRN IV 11/07/24 22:30 Ondansetron HCl 4 mg Q4HP PRN IV 11/07/24 22:30 Acetaminophen 650 mg Q6HP PRN PO 11/07/24 22:30 Doxycycline Hyclate 100 ml @ 50 mls/hr Q12H IV 11/12/24 11:45 11/12/24 23:44 50 MLS/HR Ceftriaxone Sodium 50 ml @ 100 mls/hr DAILY@09 IV 11/12/24 11:45 Hold 11/12/24 12:15 100 MLS/HR Albuterol 2.5 mg Q6HWA [facility] 11/12/24 18:00 11/13/24 11:29 2.5 MG Ipratropium [place] 0.5 mg Q6HWA NEB 11/12/24 18:00 11/13/24 11:29 0.5 MG objective Gen.: Patient lying in bed in no apparent distress. On supplemental oxygen. Head: Normocephalic, atraumatic. Eyes: EOMI/PERRLA. Ears: Normal hearing. Normal anatomy. Neck/trachea: Trachea midline, supple. Nose: Normal external anatomy. Mouth: Moist mucous membranes. Chest: Decreased air entry bilaterally. No wheezing or rhonchi. Cardiovascular: Positive S1, positive S2. Regular rate and rhythm. Abdomen: Positive bowel sounds in all 4 quadrants. Soft, non-tender, non- distended. : Deferred. Rectal: Deferred. Skin: Warm, dry. Intact. Extremities: 2+ radial pulses bilaterally. No lower extremity edema. Neuro: Awake, alert, oriented x3. No gross motor or sensory deficits. Cranial nerves II through XII intact. Gait not assessed. laboratory and microbiology Laboratory Tests 11/11/24 05:05 11/08/24 05:19 Test 11/11/24 05:05 Range/Units Serum Glucose 107 H 74-106 mg/dL Assessment/Plan Impression: Acute hypoxic respiratory failure Dependence on supplemental oxygen Pulmonary nodule Acute systolic CHF with ejection fraction 30% History of marijuana abuse Primary hypertension Dementia Events: Remains on supplemental oxygen, 2 LPM NC Taper O2 as tolerated Continue antibiotics - doxycycline Note, ceftriaxone was discontinued since patient allergic. Assess for home oxygen Recommend repeat CT scan of chest in 4-6 weeks after antibiotics Labs and imaging reviewed. Rest of plan as noted below. Plan: Supplemental oxygen Titrate to keep O2 sats above 92%. CT angio on 11/10/24 revealed no pulmonary embolism. Mass-like consolidation in right lower lung. Recommend repeat CT scan of chest in 4-6 weeks after antibiotics Continue antibiotics IV steroids Eliquis BID Accu-Cheks, ISS. Monitor renal function. Monitor electrolytes. Supplement as necessary. Monitor ins and outs. DVT prophylaxis. Prognosis: Poor given patient's multiple co-morbidities. Rest of plan per hospitalist and other consultants. Thank you, AARTI Medina, for allowing me to participate in this patient's care. Further recommendations will depend on the patient's clinical course. Please do not hesitate to contact me if you have any questions or concerns. This medical document was created using an electronic medical record system with [employer] dictation system. Although these documentations are being carefully reviewed, there may still be some phonetic and typographical changes. The errors are purely typographical, due to imperfection on the software program, and do not reflect any compromise in the patient's medical care. Dietary Evaluation Review Comments: 1. CCHO 75 + cardiac 2. Glucerna 240ml BID (ordered per protocol) 3) Continue current plan of care Expected Outcomes/Goals: Pt will meet >75% estimated needs Fu 3-5 days Plan discussed with: Patient, Other (STEPHANIE Dong) DAYAN ANDRE MD Nov 13, 2024 19:03
[2024-11-13] MEDS ORDERED: ALBU108A5 IN (21:03)
[2024-11-13] MEDS ORDERED: DOXY100C79 PO (21:03)
--- NOTE | 2024-11-14 07:36 | DVHDS2 ---
Discharge Summary Date of Admission Nov 07, 2024 at 22:16 Date of Discharge: Nov 13, 2024 Admitting Diagnosis Acute hypoxic respiratory failure Labs/Diagnostic Data: Laboratory Results Test 11/13/24 11:57 11/12/24 13:14 11/11/24 05:05 11/10/24 04:50 POC Glucose 192 mg/dl (70-106) Lactate Dehydrogenase 230 U/L (120-246) Sodium Level 139 mmol/L (136-145) Potassium Level 4.2 mmol/L (3.5-5.1) Chloride Level 103 mmol/L (98-107) Carbon Dioxide Level 26 mmol/L (20-31) Anion Gap 10 (5-15) Blood Urea Nitrogen 31 mg/dL (9-23) Creatinine 1.18 mg/dL (0.700-1.30) Glomerular Filtration Rate Calc 62 mL/min (>90) BUN/Creatinine Ratio 26.3 (10.0-20.0) Serum Glucose 107 mg/dL (74-106) Calcium Level 9.6 mg/dL (8.7-10.4) Magnesium Level 1.8 mg/dL (1.6-2.6) Test 11/09/24 14:43 11/08/24 05:19 11/07/24 22:39 11/07/24 11:14 Blood Gas Specimen Type Arterial Blood Gas Sample Site Right radial Blood Gas Patient Temperature 37.0 Arterial Blood Date Drawn [id number] Arterial Blood pH 7.496 (7.350-7.450) Arterial Blood Partial Pressure CO2 30.9 mmHg (35.0-48.0) Arterial Blood Partial Pressure O2 71.2 mmHg (83.0-108.0) Arterial Blood HCO3 23.3 mmol/L (21.0-28.0) Arterial Blood Oxygen Saturation 94.1 % (94.0-98.0) Arterial Blood Base Excess 0.9 mmol/L (-2.0-3.0) Arterial Blood Oxyhemoglobin 93.0 % (94.0-98.0) Arterial Blood Carboxyhemoglobin 0.8 % (0.5-1.5) Arterial Blood Methemoglobin 0.4 % (0.0-1.5) Ilya Test Yes Blood Gas Total Hemoglobin 13.80 g/dL (13.5-17.5) Blood Gas Liter Flow 0.00 Blood Gas Modality Room air FiO2 % 21.0 White Blood Count 5.4 10^3/uL (4.4-10.8) Red Blood Count 3.89 10^6/uL (4.5-5.90) Hemoglobin 13.4 g/dL (13.5-17.5) Hematocrit 39.5 % (41.0-53.0) Mean Corpuscular Volume 101.5 fL (80.0-100.0) Mean Corpuscular Hemoglobin 34.4 pg (28.0-32.0) Mean Corpuscular Hemoglobin Concent 33.8 g/dL (32.0-36.0) Red Cell Distribution Width 14.7 % (11.8-14.3) Platelet Count 252 10^3/uL (140-450) Mean Platelet Volume 6.5 fL (6.9-10.8) Neutrophils (%) (Auto) 60.0 % (37.0-80.0) Lymphocytes (%) (Auto) 26.1 % (10.0-50.0) Monocytes (%) (Auto) 10.8 % (0.0-12.0) Eosinophils (%) (Auto) 2.2 % (0.0-7.0) Basophils (%) (Auto) 0.9 % (0.0-2.0) Neutrophils # (Auto) 3.3 10 ^3/uL (1.6-8.6) Lymphocytes # (Auto) 1.4 10 ^3/uL (0.4-5.4) Monocytes # (Auto) 0.6 10 ^3/uL (0-1.3) Eosinophils # (Auto) 0.1 10 ^3/uL (0-0.8) Basophils # (Auto) 0 10 ^3/uL (0-0.2) Nucleated Red Blood Cells 0.1 % Hepatitis B Surface Antigen Negative (Negative) Hepatitis C Antibody Negative (Negative) D-Dimer, Quantitative 1.85 mg/L FEU (0.0-0.49) B-Type Natriuretic Peptide 387.08 pg/mL (0-100) Troponin I High Sensitivity 11 ng/L (</=54) Other Laboratory Tests 11/11/24 05:05 11/08/24 05:19 Brief Hx & Hospital Course: History of Present Illness 84-year-old male presents for evaluation of shortness for breath. Patient was seen at urgent care today and had an episode where his saturation dropped to the 70s so he was brought in for evaluation. Patient is currently on 2 L of nasal cannula oxygen saturating 94%. He denies chest pain or shortness for breath. He does have a history of dementia and can not provide accurate history. Course of hospitalization: Patient had CT angiogram of the chest which was negative for pulmonary embolism. Patient did have questionable lung mass, for which pulmonary consultation was obtained. Patient was started on antibiotic therapy, bronchodilators. Patient was requesting to be discharged home. Discussion was made with pulmonology, for which the patient was recommended to have outpatient CT scan within three months for re-evaluation of the mass. This was discussed with the patient who is agreeable to follow up with his PCP in arranged for outpatient CT scan. Patient was will be prescribed doxycycline 100 mg p.o. b.i.d. for seven days as well as albuterol nebulizer treatments. Physical examination General: Alert and Oriented x3. No acute distress. Well-nourished. Eyes: EOMI. Anicteric. HENT: Moist mucous membranes. Lungs: Clear to auscultation bilaterally. No accessory muscle use. Cardiovascular: Regular rate and rhythm. No murmur. No JVD. Abdomen: Soft, non-tender and non-distended. No palpable masses. Extremities: No edema. Non-tender. Skin: No rashes or lesions. Warm. Neurologic: No focal neurological deficits. CN II-XII grossly intact, but not individually tested. Psychiatric: Cooperative. Appropriate mood and affect. Total time spent with patient discussing and formulating plan of care: 35 minutes. This medical document was created using an electronic medical record system with [employer] dictation system. Although this document has been carefully reviewed, there may still be some phonetic and typographical errors. These areas are purely typographical due to imperfections of the software programs, and do not reflect any compromise in the patient's medical care. Consults/Reason for consult Pulmonology: Lung mass, acute hypoxic Condition at Discharge: Fair Final Diagnosis/Problems List Acute on chroic hypoxic respiratory distress Discharge Disposition: Home Discharge Instruct/Medications Diet: Consistent carbohydrate Activity: No Restrictions, As Tolerated Follow Up/Referral: Follow up with PCP and Dr. Jason Medications: Doxycycline 100 mg BID FOR 7 DAYS 36 Discharge Statement: "Patient was advised to return to the ER or call 911 if any headaches, dizziness, shortness of breath, chest pain, abdominal pain, bleeding, fevers, or worsening of medical condition. Patient was counseled about treatment plan, medications, possible side effects, patientverbalized understanding. All questions were answered to the best of my ability. This discharge took greater then 30 minutes in planning, reviewing documentation, counseling the patient, and discussing with other team members." ASSESSMENT ASSESSMENT Assessment Acute on chroic hypoxic respiratory distress Date of Service: Nov 14, 2024 Billing Provider: SRINIVASA GONZALEZ NP Common Visit Codes: 33129-[id number] INP/OBS CARE(HIGH) SRINIVASA GONZALEZ NP Nov 14, 2024 07:36
== END 2024-11-13 19:50 | disposition home or self-care (01) | DRG 177 ==
LOC: ER 10:57 → EDBD 10:57 → OVERFLOW 22:16 → WEST WING 23:53 → TELE-WESTW 11-09 06:19 → WEST WING 11-09 06:25
PROVIDERS: ADMIT Nurse Practitioner Acute Care; ATTEND Nurse Practitioner Acute Care
DX: J15.69 Pneumonia due to other Gram-negative bacteria (principal); G93.41 Metabolic encephalopathy; J96.21 Acute and chronic respiratory failure with hypoxia; I50.21 Acute systolic (congestive) heart failure; J44.1 Chronic obstructive pulmonary disease with (acute) exacerbation; I11.0 Hypertensive heart disease with heart failure; J15.9 Unspecified bacterial pneumonia; E11.9 Type 2 diabetes mellitus without complications; F03.90 Unspecified dementia, unspecified severity, without behavioral disturbance, psychotic disturbance, mood disturbance, and anxiety; F12.10 Cannabis abuse, uncomplicated; R91.1 Solitary pulmonary nodule; I48.91 Unspecified atrial fibrillation; E83.42 Hypomagnesemia; E78.2 Mixed hyperlipidemia; Z82.49 Family history of ischemic heart disease and other diseases of the circulatory system; Z79.01 Long term (current) use of anticoagulants; Z79.899 Other long term (current) drug therapy; Z99.81 Dependence on supplemental oxygen; Z28.21 Immunization not carried out because of patient refusal
CPT/HCPCS: 36415; 36600; 71045; 71275; 76705; 80048; 82805; 82962; 83615; 83735; 83880; 84484; 85025; 85379; 86803; 87340; 93005; 93306; 93970; 94640; 97110; 97116; 97163; 97530; 99291; 99292; G0378; J1815